=== PATIENT | male | born 1965 | race Caucasian/White ===

== ENCOUNTER 2017-06-19 14:13 | Inpatient (IN) | payer OTHER ==
[~2017-06-19] VITALS: Ht 188 cm; Wt 99.9 kg
[~2017-06-19 14:13] MED LIST: ALLE12TA2 PO; AMLO10TA2 PO; ASPI81CH CHEW; CIPR-9 PO; LEVO175T2 PO; PROT40TA PO; RAMI10CA PO
[2017-06-19] MEDS ORDERED: PROCHLORPERAZINE 25 MG SUPP RECTAL PRN (14:45)
[2017-06-19] MEDS ORDERED: HEPARIN-D5W 25,000 U/250 ML 250 ML IV PRN (14:45)
[2017-06-19] MEDS ORDERED: ACETAMINOPHEN 325 MG TAB PO PRN ×2 (14:45)
[2017-06-19] MEDS ORDERED: LACTULOSE SYRUP 20 GM/30 ML CUP PO PRN (14:45)
[2017-06-19] MEDS ORDERED: NALOXONE HCL 0.4 MG/ML AMP IV PUSH PRN (14:45)
[2017-06-19] MEDS ORDERED: ONDANSETRON HCL 4 MG/2 ML VIAL IVP PRN (14:45)
[2017-06-19] MEDS ORDERED: MORPHINE SULFATE 4 MG/ML INJ IV PUSH PRN ×2 (14:45)
[2017-06-19] MEDS ORDERED: BISACODYL 10 MG SUPP RECTAL PRN (14:45)
[2017-06-19] MEDS ORDERED: SODIUM CHLORIDE 0.9% FLUSH 10 ML FLUSH IV FLUSH PRN (14:45)
[2017-06-19] MEDS ORDERED: oxyCODONE/ACETAMINOPHEN 10 MG/325 MG TAB PO PRN (14:45)
[2017-06-19] MEDS ORDERED: SENNOSIDES 8.6 MG TAB PO PRN (14:45)
[2017-06-19] MEDS ORDERED: cloNIDine HCL 0.1 MG TAB PO PRN (14:45)
[2017-06-19] MEDS ORDERED: MAGNESIUM HYDROXIDE SUSP 30 ML CUP PO PRN (14:45)
[2017-06-19] MEDS ORDERED: LORazepam 1 MG TAB PO PRN (17:45)
[2017-06-19] MEDS ORDERED: LORazepam 2 MG TAB PO PRN (17:45)
--- NOTE | 2017-06-19 17:56 | HHI.HP ---
[facility] Service [facility] Primary Care Physician Non-Staff Admission Diagnosis Diagnoses: Chief Complaint: sob, and right leg pain Travel History International Travel<30 Days: No Contact w/Intl Traveler <30 Da: No Traveled to Known Affected Are: No History of Present Illness 51 y/o male with a history of HTN, Gerd and hypothyroid presented to the ED with complaints of sob and right calf pain. Patient states 2 weeks ago developed dyspnea and right calf pain. 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 He was seen by his PCP and diagnosed with bronchitis and given Ciprofloxacin without any relief. No chest x ray or US was completed outpatient. He denies any chest pain, fever or chills. He does have a cough which is followed by the shortness of breath, and worse with exertion. No sputum production. FOUND TO HAVE BILATERAL PULMONARY EMBOLI Review of Systems Constitutional: COMPLAINS OF: Fatigue, DENIES: Diaphoretic episodes, Fever, Weight gain, Weight loss, Chills, Dizziness, Change in appetite Endocrine: DENIES: Heat/cold intolerance, Polydipsia, Polyuria, Polyphagia Eyes: DENIES: Blurred vision, Diplopia, Eye inflammation, Eye pain, Vision loss , Photosensitivity Ears, nose, mouth, throat: DENIES: Tinnitus, Hearing loss, Vertigo, Nasal discharge, Oral lesions, Throat pain Respiratory: COMPLAINS OF: Cough, Shortness of breath, DENIES: Apneas, Snoring , Wheezing, Hemoptysis, Sputum production Cardiovascular: COMPLAINS OF: Lower Extremity Edema, DENIES: Chest pain, Palpitations, Syncope, Dyspnea on Exertion, PND Gastrointestinal: DENIES: Abdominal pain, Black stools, Bloody stools, Constipation Genitourinary: DENIES: Sexual dysfunction, Urinary frequency, Urinary incontinence Musculoskeletal: DENIES: Joint pain, Muscle aches, Stiffness, Joint Swelling Integumentary: DENIES: Abnormal pigmentation, Nail changes Hematologic/lymphatic: DENIES: Bruising, Lymphadenopathy Immunologic/allergic: DENIES: Eczema, Urticaria Neurologic: DENIES: Abnormal gait, Headache, Localized weakness, Paresthesias, Speech Problems, Tremor Psychiatric: DENIES: Anxiety, Confusion, Mood changes, Depression, Hallucinations, Agitation Except as stated in HPI: all other systems reviewed are Neg Past Family Social History Past Medical History HTN GERD Hypothyroid Past Surgical History Patient denies any surgical history Reported Medications Reported Meds & Active Scripts Active Reported Cipro (Ciprofloxacin HCl) 500 Mg Tab 500 Mg PO BID Ramipril 10 Mg Cap 10 Mg PO BID Amlodipine (Amlodipine Besylate) 10 Mg Tab 10 Mg PO DAILY Protonix (Pantoprazole Sodium) 40 Mg Tab 40 Mg PO DAILY Levothyroxine (Levothyroxine Sodium) 175 Mcg Tab 175 Mcg PO DAILY Aspirin 81 Mg Chew 81 Mg CHEW DAILY Corazon-D 12 Hour Allergy (Fexofenadine-Pseudoephedrine ER 12 HR) 60-120 Mg Sierra 1 Tab PO BID Allergies: Coded Allergies: Penicillins (Verified Allergy, Unknown, Swelling, 06/19/17) Active Ordered Medications Current Medications Medications (Trade) Dose Ordered Sig/Carmita Route Start Time Stop Time Status Last Admin Sodium Chloride 1,000 ml @ 100 mls/hr Q10H IV 06/19/17 17:00 (NS Flush) 2 ml UNSCH PRN IV FLUSH 06/19/17 14:45 (NS Flush) 2 ml BID IV FLUSH 06/19/17 21:00 (Tylenol) 650 mg Q4H PRN PO 06/19/17 14:45 (Zofran Inj) 4 mg Q6H PRN IVP 06/19/17 14:45 (Compazine Supp) 25 mg Q12H PRN RECTAL 06/19/17 14:45 (Tylenol) 650 mg Q6H PRN PO 06/19/17 14:45 (Percocet 5-325 Mg) 1 tab Q6H PRN PO 06/19/17 14:45 (Percocet 10-325 Mg) 1 tab Q6H PRN PO 06/19/17 14:45 (Morphine Inj) 2 mg Q3H PRN IV PUSH 06/19/17 14:45 (Morphine Inj) 4 mg Q3H PRN IV PUSH 06/19/17 14:45 (Narcan Inj) 0.4 mg UNSCH PRN IV PUSH 06/19/17 14:45 (Antionette-Colace) 1 tab BID PO 06/19/17 21:00 (Milk Of Magnesia Liq) 30 ml Q12H PRN PO 06/19/17 14:45 (Senokot) 17.2 mg Q12H PRN PO 06/19/17 14:45 (Dulcolax Supp) 10 mg DAILY PRN RECTAL 06/19/17 14:45 (Lactulose Liq) 30 ml DAILY PRN PO 06/19/17 14:45 Heparin Sodium/ Dextrose 250 ml @ 0 mls/hr TITRATE PRN IV 06/19/17 14:45 UNV (Norvasc) 10 mg DAILY PO 06/20/17 09:00 (Aspirin Chew) 81 mg DAILY CHEW 06/20/17 09:00 (Protonix) 40 mg DAILY@0600 PO 06/20/17 06:00 (Synthroid) 150 mcg DAILY@0600 PO 06/20/17 06:00 (Altace) 10 mg BID PO 06/19/17 21:00 (Catapres) 0.1 mg Q4H PRN PO 06/19/17 14:45 (Synthroid) 25 mcg DAILY@0600 PO 06/20/17 06:00 Family History Dad: Heart disease Mom: Smoker, lung cancer Social History Tobacco use: denies Alcohol use: 6-8 beers a day Illicit drug use: Denies Physical Exam Physical Exam GENERAL: This is a well-nourished, well-developed patient, in no apparent distress. SKIN: No rashes, ecchymoses or lesions. Cool and dry. HEAD: Atraumatic. Normocephalic. No temporal or scalp tenderness. EYES: Pupils equal round and reactive. Extraocular motions intact. No scleral icterus. No injection or drainage. ENT: Nose without bleeding, purulent drainage or septal hematoma. Throat without erythema, tonsillar hypertrophy or exudate. Uvula midline. Airway patent. NECK: Trachea midline. No JVD. CARDIOVASCULAR: Regular rate and rhythm without murmurs, gallops, or rubs. RESPIRATORY: Diminished bilateral upper lobes. No wheezes, rales, or rhonchi. GASTROINTESTINAL: Abdomen soft, non-tender, nondistended. BS x 4 MUSCULOSKELETAL: Extremities without clubbing, cyanosis, or edema. Right calf tenderness. NEUROLOGICAL: Awake and alert. Motor and sensory grossly within normal limits. Normal speech. Laboratory Item Value Date Time White Blood Count 8.7 TH/MM3 06/19/17 1432 Red Blood Count 4.82 MIL/MM3 06/19/17 1432 Hemoglobin 8.8 GM/DL L 06/19/17 1432 Hematocrit 30.8 % L 06/19/17 1432 Mean Corpuscular Volume 63.9 FL L 06/19/17 1432 Mean Corpuscular Hemoglobin 18.3 PG L 06/19/17 1432 Mean Corpuscular Hemoglobin Concent 28.6 % L 06/19/17 1432 Red Cell Distribution Width 20.7 % H 06/19/17 1432 Platelet Count 218 TH/MM3 06/19/17 1432 Mean Platelet Volume 9.9 FL 06/19/17 1432 Neutrophils (%) (Auto) 73.0 % H 06/19/17 1206 Lymphocytes (%) (Auto) 13.8 % 06/19/17 1206 Monocytes (%) (Auto) 9.7 % H 06/19/17 1206 Eosinophils (%) (Auto) 2.6 % 06/19/17 1206 Basophils (%) (Auto) 0.7 % 06/19/17 1206 Neutrophils # (Auto) 5.9 TH/MM3 06/19/17 1206 Lymphocytes # (Auto) 1.1 TH/MM3 06/19/17 1206 Monocytes # (Auto) 0.8 TH/MM3 06/19/17 1206 Basophils # (Auto) 0.1 TH/MM3 06/19/17 1206 Eosinophils # (Auto) 0.2 TH/MM3 06/19/17 1206 Differential Comment AUTO DIFF CONFIRMED 06/19/17 1206 CBC Comment AUTO DIFF 06/19/17 1206 Platelet Estimate NORMAL 06/19/17 1206 Platelet Morphology Comment NORMAL 06/19/17 1206 Polychromasia 2.0 % H 06/19/17 1206 Ovalocytes 1+ H 06/19/17 1206 Item Value Date Time Blood Gas Patient Temperature 98.6 06/19/17 1225 Blood Gas HCO3 21 mmol/L L 06/19/17 1225 Bedside Blood Gas Base Excess (LAB) -3.0 mmol/L L 06/19/17 1225 Blood Gas Oxygen Saturation 95 % 06/19/17 1225 Arterial Blood pH 7.45 H 06/19/17 1225 Arterial Blood Partial Pressure CO2 30 mmHG L 06/19/17 1225 Arterial Blood Partial Pressure O2 70 mmHG 06/19/17 1225 Arterial Blood Oxygen Content 22.0 Vol % H 06/19/17 1225 Oxygen Delivery Device ROOM AIR 06/19/17 1225 Blood Gas Inspired Oxygen 21 % 06/19/17 1225 Item Value Date Time Prothrombin Time 10.6 SEC 06/19/17 1206 Prothromb Time International Ratio 1.0 RATIO 06/19/17 1206 Activated Partial Thromboplast Time 27.6 SEC 06/19/17 1432 Fibrinogen 342 mg/dL 06/19/17 1432 D-Dimer Quantitative (PE/DVT) GREATER THAN 4.40 MG/L FEU H 06/19/17 1432 Item Value Date Time Sodium Level 139 MEQ/L 06/19/17 1206 Potassium Level 4.2 MEQ/L 06/19/17 1206 Chloride Level 108 MEQ/L H 06/19/17 1206 Carbon Dioxide Level 21.0 MEQ/L 06/19/17 1206 Anion Gap 10 MEQ/L 06/19/17 1206 Blood Urea Nitrogen 16 MG/DL 06/19/17 1206 Creatinine 1.30 MG/DL 06/19/17 1206 Estimat Glomerular Filtration Rate 58 ML/MIN L 06/19/17 1206 Random Glucose 106 MG/DL 06/19/17 1206 Calcium Level 8.7 MG/DL 06/19/17 1206 Total Creatine Kinase 123 U/L 06/19/17 1206 Creatine Kinase MB LESS THAN 1.0 NG/ML 06/19/17 1206 Troponin I LESS THAN 0.02 NG/ML L 06/19/17 1206 Imaging NINFA,HARSH SIMS JR Signed EXAM DATE/TIME: 06/19/2017 12:57 [facility] COMPARISON: No previous studies available for comparison. INDICATIONS : Short of breath. IV CONTRAST: 140 cc Omnipaque 350 (iohexol) IV RADIATION DOSE: 16.23 CTDIvol (mGy) MEDICAL HISTORY : Hypertension. SURGICAL HISTORY : None. ENCOUNTER: Initial ACUITY: 1 day PAIN SCALE: 5/10 LOCATION: chest TECHNIQUE: Volumetric scanning of the chest was performed using a pulmonary embolism protocol MIP images were reconstructed. Using automated exposure control and adjustment of the mA and/or kV according to patient size, radiation dose was kept as low as reasonably achievable to obtain optimal diagnostic quality images. DICOM format image data is available electronically for review and comparison. Follow-up recommendations for detected pulmonary nodules are based at a minimum on nodule size and patient risk factors according to Fleischner Society Guidelines. FINDINGS: PULMONARY ARTERIES: The examination is positive for pulmonary emboli involving second order branches bilaterally. LUNGS: There is no consolidation or pneumothorax . No concerning pulmonary nodule is visualized. PLEURAE: There is no pleural thickening or pleural effusion. MEDIASTINUM: There is good visualization of the great vessels of the middle mediastinum. No evidence of mediastinal or hilar adenopathy/mass. MUSCULOSKELETAL: Within normal limits for patient age. MISCELLANEOUS: The visualized upper abdominal organs demonstrate no acute abnormality. CONCLUSION: 1. The examination is positive for pulmonary embolus. Erick Sosa MD on June 19, 2017 at 13:24 Board Certified Radiologist. This report was verified electronically. HARSH OCASIO JR Signed EXAM DATE/TIME: 06/19/2017 12:55 [facility] COMPARISON: No previous studies available for comparison. INDICATIONS : Coughing, short of breath. MEDICAL HISTORY : Hypertension. SURGICAL HISTORY : None. ENCOUNTER: Initial ACUITY: 1 day PAIN SCORE: 4/10 LOCATION: Bilateral chest FINDINGS: PA and lateral views of the chest demonstrate the lungs to be symmetrically aerated without evidence of mass, infiltrate or effusion. The cardiomediastinal contours are unremarkable. Osseous structures demonstrate an old, healed fracture of the seventh lateral rib on the right. The osseous structures are otherwise intact. CONCLUSION: 1. No acute cardiopulmonary findings. Erick Sosa MD on June 19, 2017 at 13:29 Board Certified Radiologist. This report was verified electronically. Caprini VTE Risk Assessment Caprini VTE Risk Assessment: Mod/High Risk (score >= 2) Caprini Risk Assessment Model Point Value = 1 Point Value = 2 Point Value = 3 Point Value = 5 Age 41-60 Minor surgery BMI > 25 kg/m2 Swollen legs Varicose veins or History of unexplained or recurrent spontaneous Oral contraceptives or hormone replacement Sepsis (< 1 month) Serious lung disease, including pneumonia (< 1 month) Abnormal pulmonary function Acute myocardial infarction Congestive heart failure (< 1 month) History of inflammatory bowel disease Medical patient at bed rest Age 61-74 Arthroscopic surgery Major open surgery (> 45 min) Laparoscopic surgery (> 45 min) Malignancy Confined to bed (> 72 hours) Immobilizing plaster cast Central venous access Age >= 75 History of VTE Family history of VTE Factor V Leiden Prothrombin [id number] Lupus anticoagulant Anticardiolipin antibodies Elevated serum homocysteine Heparin-induced thrombocytopenia Other congenital or acquired thrombophilia Stroke (< 1 month) Elective arthroplasty Hip, pelvis, or leg fracture Acute spinal cord injury (< 1 month) Prophylaxis Regimen Total Risk Factor Score Risk Level Prophylaxis Regimen 0-1 Low Early ambulation 2 Moderate Order ONE of the following: *Sequential Compression Device (SCD) *Heparin 5000 units SQ BID 3-4 Higher Order ONE of the following medications: *Heparin 5000 units SQ TID *Enoxaparin/Lovenox 40 mg SQ daily (WT < 150 kg, CrCl > 30 mL/min) *Enoxaparin/Lovenox 30 mg SQ daily (WT < 150 kg, CrCl > 10-29 mL/min) *Enoxaparin/Lovenox 30 mg SQ BID (WT < 150 kg, CrCl > 30 mL/min) AND/OR *Sequential Compression Device (SCD) 5 or more Highest Order ONE of the following medications: *Heparin 5000 units SQ TID (Preferred with Epidurals) *Enoxaparin/Lovenox 40 mg SQ daily (WT < 150 kg, CrCl > 30 mL/min) *Enoxaparin/Lovenox 30 mg SQ daily (WT < 150 kg, CrCl > 10-29 mL/min) *Enoxaparin/Lovenox 30 mg SQ BID (WT < 150 kg, CrCl > 30 mL/min) AND *Sequential Compression Device (SCD) Assessment and Plan Problem List: (1) Pulmonary embolism ICD Code: I26.99 - Other pulmonary embolism without acute cor pulmonale (2) Hypothyroid ICD Code: E03.9 - Hypothyroidism, unspecified (3) HTN (hypertension) ICD Code: I10 - Essential (primary) hypertension Assessment and Plan 51 y/o male with a history of HTN, Gerd and hypothyroid presented to the ED with complaints of sob and right calf pain. Pulmonary embolism CTA reviewed and showed positive PE -Bilateral Doppler ultrasound to rule out DVT -Hypercoag labs ordered, will consult hematology if needed -Heparin Drip ordered Hypertension, chronic -Resume home amlodipine and ramipril -Monitor Vitals -Clonidine PRN Hypothyroid, chronic -Resume home medication levothyroxine -TSH pending Alcohol abuse, 6-8 beers a day -CIWA protocol ordered -Withdraw/seizure precautions -Encouraged to quit DVT prophylaxis: Heparin GI prophylaxis: Protonix The exam, history, and the medical decision-making described in the above note were completed with the assistance of the mid-level provider. I reviewed and agree with the findings presented. I attest that I had a [id number] encounter with the patient on the same day, and personally performed and documented my assessment and findings in the medical record. Code Status Full Discussed Condition With Patient and RN Physician Certification 2 Midnight Certification Type: Admission for Inpatient Services Order for Inpatient Services The services are ordered in accordance with Medicare regulations or non- Medicare payer requirements, as applicable. In the case of services not specified as inpatient-only, they are appropriately provided as inpatient services in accordance with the 2-midnight benchmark. Estimated LOS (days): 3 3 days is the estimated time the patient will need to remain in the hospital, assuming treatment plan goals are met and no additional complications. Post-Hospital Plan: Home Naomy Mosqueda Jun 19, 2017 17:56 Wild Ibanez DO Jun 19, 2017 18:25
--- NOTE | 2017-06-19 18:23 | RADRPT ---
EXAM DATE/TIME: 06/19/2017 17:34 [facility] COMPARISON: No previous studies available for comparison. INDICATIONS : Bilateral leg pain. MEDICAL HISTORY : Hypertension. Gastroesophageal reflux disease. ETOH abuse. Plaque psoriasis. Thyroid disease. SURGICAL HISTORY : None. ENCOUNTER: Initial ACUITY: 2 day PAIN SCORE: 4/10 LOCATION: Bilateral leg. TECHNIQUE: Venous ultrasound of the left and right leg was performed from the inguinal ligament to the proximal calf. Real-time, color Doppler and spectral tracing, compression and augmentation techniques were us ed. FINDINGS: RIGHT LEG: The common femoral, femoral, greater saphenous and popliteal veins are patent with normal grayscale a nd color Doppler appearance. There is occlusive thrombus in the right peroneal vein and posterior tib ial veins. The right iliac vein is patent. LEFT LEG: There is normal compressibility of the deep venous system from the inguinal region to the proximal ca lf. No echogenic clot is seen in the lumen of the common femoral, femoral, popliteal, and posterior tibial veins. There is a normal response of the venous system to proximal and distal augmentation an d respiration. CONCLUSION: 1. Occlusive thrombus in the right peroneal and posterior tibial vein. 2. No evidence for DVT on the left. Hernesto Starr MD on June 19, 2017 at 18:20 Board Certified Radiologist. This report was verified electronically.
[2017-06-19 18:53] VITALS: PULSE 77; RESP 20; O2SAT 95
[2017-06-19] MEDS: SODIUM CHLORIDE 0.9% FLUSH 10 ML FLUSH IV FLUSH SCH (21:00)
[2017-06-19 21:32] LABS: HEMATOCRIT 30.2 % (39.0-51.0); MEAN CELL VOLUME 60.2 FL (80.0-100.0); MEAN CORPUSCULAR HEMOGLOBIN 18.1 PG (27.0-34.0); MEAN CORPUSCULAR HGB CONC 30.1 % (32.0-36.0); PLATELET COUNT 199 TH/MM3 (150-450); RED BLOOD COUNT 5.02 MIL/MM3 (4.50-5.90); RED CELL DISTRIBUTION WIDTH 20.1 % (11.6-17.2); REVIEW FLAG FINAL; WHITE BLOOD COUNT 9.1 TH/MM3 (4.0-11.0)
[2017-06-19 21:49] VITALS: BP 134/80; PULSE 84; TEMP 99.3; O2SAT 95
[2017-06-19] MEDS: RAMIPRIL 5 MG CAP PO SCH (21:53)
[2017-06-19] MEDS: DOCUSATE SODIUM 50 MG/SENNA 8.6 MG TAB PO SCH (21:53)
[2017-06-19] MEDS: SODIUM CHLOR 0.9% 1000 ML INJ 1,000 ML IV SCH (22:03)
[2017-06-19 22:06] LABS: CREATINE KINASE 120 U/L (39-308)
[2017-06-19 22:21] LABS: APTT (PATIENT) 81.4 SEC (24.3-30.1)
[2017-06-20] VITALS (7 sets, daily range): BP systolic 115–139; BP diastolic 65–84; PULSE 72–93; RESP 18–20; TEMP 98.2–98.6; O2SAT 94–97
[2017-06-20] MEDS: BENZONATATE 100 MG CAP PO PRN ×2 (02:43→23:27)
[2017-06-20] MEDS: oxyCODONE/ACETAMINOPHEN 5 MG/325 MG TAB PO PRN ×3 (02:44→23:27)
[2017-06-20 04:22] LABS: APTT (PATIENT) 64.5 SEC (24.3-30.1)
[2017-06-20] MEDS: PANTOPRAZOLE SOD 40 MG DELAYED RELEASE TAB PO SCH (05:04)
[2017-06-20] MEDS: HEPARIN 25,000 UNITS-D5W 250 ML - PREMIX IV SCH ×2 (05:06→21:44)
[2017-06-20] MEDS ORDERED: LEVOTHYROXINE SODIUM 150 MCG TAB PO SCH (06:00)
[2017-06-20] MEDS ORDERED: LEVOTHYROXINE SODIUM 25 MCG TAB PO SCH (06:00)
[2017-06-20] MEDS: SODIUM CHLORIDE 0.9% FLUSH 10 ML FLUSH IV FLUSH SCH ×2 (09:00→21:00)
[2017-06-20 09:57] LABS: AUTOMATED NEUTROPHIL # 4.8 TH/MM3 (1.8-7.7); BASOPHIL # 0.1 TH/MM3 (0-0.2); BASOPHIL % 1.1 % (0.0-2.0); EOSINOPHIL # 0.3 TH/MM3 (0-0.4); EOSINOPHIL % 4.1 % (0.0-4.0); HEMATOCRIT 28.1 % (39.0-51.0); HEMO FLAGS DIFF FINAL; LYMPH % 20.7 % (9.0-44.0); LYMPHOCYTE # 1.6 TH/MM3 (1.0-4.8); MEAN CELL VOLUME 60.6 FL (80.0-100.0); MONO % 11.7 % (0.0-8.0); NEUT % 62.4 % (16.0-70.0); PLATELET COUNT 182 TH/MM3 (150-450); RED BLOOD COUNT 4.65 MIL/MM3 (4.50-5.90); RED CELL DISTRIBUTION WIDTH 20.5 % (11.6-17.2); WHITE BLOOD COUNT 7.7 TH/MM3 (4.0-11.0)
[2017-06-20 10:04] LABS: APTT (PATIENT) 53.9 SEC (24.3-30.1)
[2017-06-20 10:20] LABS: MEAN CORPUSCULAR HGB CONC 29.6 % (32.0-36.0)
[2017-06-20 10:24] LABS: ALT (GPT) 30 U/L (12-78); ANION GAP 8 MEQ/L (5-15); AST (GOT) 23 U/L (15-37); BICARBONATE 24.5 MEQ/L (21.0-32.0); BLOOD UREA NITROGEN 15 MG/DL (7-18); CHLORIDE 107 MEQ/L (98-107); GLOMERULAR FILTRATION RATE 69 ML/MIN (>89); MAGNESIUM 2.8 MG/DL (1.5-2.5); POTASSIUM 3.9 MEQ/L (3.5-5.1); SODIUM (NA) 139 MEQ/L (136-145)
[2017-06-20 10:32] LABS: ALKALINE PHOSPHATASE 76 U/L (45-117); CREATINE KINASE 108 U/L (39-308); TOTAL BILIRUBIN ADULT 0.3 MG/DL (0.2-1.0)
[2017-06-20 10:43] LABS: HEMOGLOBIN A1a 1.6 %; HEMOGLOBIN A1b 1.8 %; HEMOGLOBIN Ao 83.5 %; HEMOGLOBIN LA1C 2.4 %; HEMOGLOBIN P3 3.9 %
[2017-06-20] MEDS: MULTIVITAMINS/MINERALS THERAPEUTIC TAB PO SCH (11:49)
[2017-06-20] MEDS: THIAMINE HCL 100 MG TAB PO SCH (11:50)
[2017-06-20] MEDS: DOCUSATE SODIUM 50 MG/SENNA 8.6 MG TAB PO SCH ×2 (11:50→21:40)
[2017-06-20] MEDS: RAMIPRIL 5 MG CAP PO SCH ×2 (11:50→21:40)
[2017-06-20] MEDS: ASPIRIN 81 MG CHEW TAB CHEW SCH (11:50)
[2017-06-20] MEDS: FOLIC ACID 1 MG TAB PO SCH (11:50)
[2017-06-20] MEDS: SODIUM CHLOR 0.9% 1000 ML INJ 1,000 ML IV SCH ×3 (11:51→23:00)
--- NOTE | 2017-06-20 12:40 | HHI.PR ---
Subjective Remarks 51 y/o male with a history of HTN, Gerd and hypothyroid presented to the ED with complaints of sob and right calf pain. Patient states 2 weeks ago developed dyspnea and right calf pain. 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 He was seen by his PCP and diagnosed with bronchitis and given Ciprofloxacin without any relief. No chest x ray or US was completed outpatient. He denies any chest pain, fever or chills. He does have a cough which is followed by the shortness of breath, and worse with exertion. No sputum production. FOUND TO HAVE BILATERAL PULMONARY EMBOLI 06-20 patient found to have DVTs in the right lower extremity Has pulmonary embolism bilaterally Consult hematology Hopefully can be placed on a novel anticoagulant Have discussed with the patient and RN Has some pain in the right lower extremity and some back pain Continue heparin drip at this time His TSH was elevated will increase his Synthroid to 200 MCG's daily Objective Vitals Vital Signs Date Time Temp Pulse Resp B/P (MAP) Pulse Ox O2 Delivery O2 Flow Rate FiO2 06/20/17 12:14 98.5 73 19 122/80 (94) 96 06/20/17 08:53 98.2 77 18 115/79 (91) 94 06/20/17 04:00 98.6 82 20 122/84 (97) 97 06/20/17 00:00 98.6 93 20 139/78 (98) 97 06/19/17 21:49 99.3 84 134/80 (98) 95 06/19/17 18:53 77 20 95 I/O 06/19/17 06/19/17 06/19/17 06/20/17 06/20/17 06/20/17 07:00 15:00 23:00 07:00 15:00 23:00 # Voids 1 2 Result Diagram: 06/20/17 0846 06/20/17 0846 Other Results Laboratory Tests Test 06/19/17 21:18 06/20/17 04:04 06/20/17 08:46 White Blood Count 9.1 TH/MM3 7.7 TH/MM3 Red Blood Count 5.02 MIL/MM3 4.65 MIL/MM3 Hemoglobin 9.1 GM/DL 8.3 GM/DL Hematocrit 30.2 % 28.1 % Mean Corpuscular Volume 60.2 FL 60.6 FL Mean Corpuscular Hemoglobin 18.1 PG 18.0 PG Mean Corpuscular Hemoglobin Concent 30.1 % 29.6 % Red Cell Distribution Width 20.1 % 20.5 % Platelet Count 199 TH/MM3 182 TH/MM3 Mean Platelet Volume 8.5 FL 8.6 FL Prothrombin Time 11.0 SEC 11.0 SEC Prothromb Time International Ratio 1.0 RATIO 1.0 RATIO Activated Partial Thromboplast Time 81.4 SEC 64.5 SEC 53.9 SEC Total Creatine Kinase 120 U/L 108 U/L Troponin I LESS THAN 0.02 NG/ML LESS THAN 0.02 NG/ML Neutrophils (%) (Auto) 62.4 % Lymphocytes (%) (Auto) 20.7 % Monocytes (%) (Auto) 11.7 % Eosinophils (%) (Auto) 4.1 % Basophils (%) (Auto) 1.1 % Neutrophils # (Auto) 4.8 TH/MM3 Lymphocytes # (Auto) 1.6 TH/MM3 Monocytes # (Auto) 0.9 TH/MM3 Eosinophils # (Auto) 0.3 TH/MM3 Basophils # (Auto) 0.1 TH/MM3 CBC Comment DIFF FINAL Differential Comment Blood Urea Nitrogen 15 MG/DL Creatinine 1.11 MG/DL Random Glucose 94 MG/DL Total Protein 7.0 GM/DL Albumin 3.5 GM/DL Calcium Level 8.4 MG/DL Phosphorus Level 3.5 MG/DL Magnesium Level 2.8 MG/DL Alkaline Phosphatase 76 U/L Aspartate Amino Transf (AST/SGOT) 23 U/L Alanine Aminotransferase (ALT/SGPT) 30 U/L Total Bilirubin 0.3 MG/DL Sodium Level 139 MEQ/L Potassium Level 3.9 MEQ/L Chloride Level 107 MEQ/L Carbon Dioxide Level 24.5 MEQ/L Anion Gap 8 MEQ/L Estimat Glomerular Filtration Rate 69 ML/MIN Hemoglobin A1c 6.1 % Free Thyroxine 1.30 NG/DL Thyroid Stimulating Hormone 3rd Gen 12.200 uIU/ML Imaging Last Impressions Lower Extremity Ultrasound 06/19/17 0000 Signed Impressions: Service Date/Time: Monday, June 19, 2017 17:34 - CONCLUSION: 1. Occlusive thrombus in the right peroneal and posterior tibial vein. 2. No evidence for DVT on the left. Hernesto Starr MD Chest, PA & LAT Signed EXAM DATE/TIME: 06/19/2017 12:55 [facility] COMPARISON: No previous studies available for comparison. INDICATIONS : Coughing, short of breath. MEDICAL HISTORY : Hypertension. SURGICAL HISTORY : None. ENCOUNTER: Initial ACUITY: 1 day PAIN SCORE: 4/10 LOCATION: Bilateral chest FINDINGS: PA and lateral views of the chest demonstrate the lungs to be symmetrically aerated without evidence of mass, infiltrate or effusion. The cardiomediastinal contours are unremarkable. Osseous structures demonstrate an old, healed fracture of the seventh lateral rib on the right. The osseous structures are otherwise intact. CONCLUSION: 1. No acute cardiopulmonary findings. Erick Sosa MD on June 19, 2017 at 13:29 Board Certified Radiologist. This report was verified electronically. CT Pulmonary Angiogram Signed EXAM DATE/TIME: 06/19/2017 12:57 [facility] COMPARISON: No previous studies available for comparison. INDICATIONS : Short of breath. IV CONTRAST: 140 cc Omnipaque 350 (iohexol) IV RADIATION DOSE: 16.23 CTDIvol (mGy) MEDICAL HISTORY : Hypertension. SURGICAL HISTORY : None. ENCOUNTER: Initial ACUITY: 1 day PAIN SCALE: 5/10 LOCATION: chest TECHNIQUE: Volumetric scanning of the chest was performed using a pulmonary embolism protocol MIP images were reconstructed. Using automated exposure control and adjustment of the mA and/or kV according to patient size, radiation dose was kept as low as reasonably achievable to obtain optimal diagnostic quality images. DICOM format image data is available electronically for review and comparison. Follow-up recommendations for detected pulmonary nodules are based at a minimum on nodule size and patient risk factors according to Fleischner Society Guidelines. FINDINGS: PULMONARY ARTERIES: The examination is positive for pulmonary emboli involving second order branches bilaterally. LUNGS: There is no consolidation or pneumothorax . No concerning pulmonary nodule is visualized. PLEURAE: There is no pleural thickening or pleural effusion. MEDIASTINUM: There is good visualization of the great vessels of the middle mediastinum. No evidence of mediastinal or hilar adenopathy/mass. MUSCULOSKELETAL: Within normal limits for patient age. MISCELLANEOUS: The visualized upper abdominal organs demonstrate no acute abnormality. CONCLUSION: 1. The examination is positive for pulmonary embolus. Erick Sosa MD on June 19, 2017 at 13:24 Board Certified Radiologist. This report was verified electronically. Objective Remarks GENERAL: This is a well-nourished, well-developed patient, in no apparent distress. SKIN: No rashes, ecchymoses or lesions. Cool and dry. HEAD: Atraumatic. Normocephalic. No temporal or scalp tenderness. EYES: Pupils equal round and reactive. Extraocular motions intact. No scleral icterus. No injection or drainage. ENT: Nose without bleeding, purulent drainage or septal hematoma. Throat without erythema, tonsillar hypertrophy or exudate. Uvula midline. Airway patent. Tongue is midline NECK: Trachea midline. No JVD. Supple CARDIOVASCULAR: Regular rate and rhythm without murmurs, gallops, or rubs. RESPIRATORY: Diminished bilateral upper lobes. No wheezes, rales, or rhonchi. GASTROINTESTINAL: Abdomen soft, non-tender, nondistended. BS x 4 MUSCULOSKELETAL: Extremities without clubbing, cyanosis, or edema. Right calf tenderness. NEUROLOGICAL: Awake and alert. Motor and sensory grossly within normal limits. Normal speech. Insight and judgment is good; mood and behaviors are appropriate Medications and IVs Current Medications Sodium Chloride 1,000 ml @ 100 mls/hr Q10H IV Last administered on 06/20/17t 11:54; Start 06/19/17 at 17:00 Sodium Chloride (NS Flush) 2 ml UNSCH PRN IV FLUSH FLUSH AFTER USING IV ACCESS ; Start 06/19/17 at 14:45 Sodium Chloride (NS Flush) 2 ml BID IV FLUSH Last administered on 06/19/17t 21: 00; Start 06/19/17 at 21:00 Acetaminophen (Tylenol) 650 mg Q4H PRN PO TEMP > 100.4; Start 06/19/17 at 14:45 Ondansetron HCl (Zofran Inj) 4 mg Q6H PRN IVP NAUSEA OR VOMITING; Start at 14:45 Prochlorperazine (Compazine Supp) 25 mg Q12H PRN RECTAL SEE LABEL COMMENTS; Start 06/19/17 at 14:45 Acetaminophen (Tylenol) 650 mg Q6H PRN PO PAIN SCALE 1 TO 2; Start 06/19/17 at 14:45 Oxycodone/ Acetaminophen (Percocet 5-325 Mg) 1 tab Q6H PRN PO PAIN SCALE 3 TO 5 Last administered on 06/20/17 02:44; Start 06/19/17 at 14:45 Oxycodone/ Acetaminophen (Percocet 10-325 Mg) 1 tab Q6H PRN PO PAIN SCALE 6 TO 10; Start 06/19/17 at 14:45 Morphine Sulfate (Morphine Inj) 2 mg Q3H PRN IV PUSH Pain 3-5; if unable to take PO; Start 06/19/17 at 14:45 Morphine Sulfate (Morphine Inj) 4 mg Q3H PRN IV PUSH Pain 6-10;if unable to take PO Last administered on 06/20/17 05:16; Start 06/19/17 at 14:45 Naloxone HCl (Narcan Inj) 0.4 mg UNSCH PRN IV PUSH SEE LABEL COMMENTS; Start 06/19/17 at 14:45 Senna/Docusate Sodium (Antionette-Colace) 1 tab BID PO Last administered on 11:50; Start 06/19/17 at 21:00 Magnesium Hydroxide (Milk Of Magnesia Liq) 30 ml Q12H PRN PO MILD - MODERATE CONSTIPATION; Start 06/19/17 at 14:45 Sennosides (Senokot) 17.2 mg Q12H PRN PO MODERATE - SEVERE CONSTIPATION; Start 06/19/17 at 14:45 Bisacodyl (Dulcolax Supp) 10 mg DAILY PRN RECTAL SEVERE CONSITIPATION; Start 06/19/17 at 14:45 Lactulose (Lactulose Liq) 30 ml DAILY PRN PO SEVERE CONSITIPATION; Start at 14:45 Heparin Sodium/ Dextrose 250 ml @ 0 mls/hr TITRATE PRN IV Coagulation management; Start 06/19/17 at 14:45; Status UNV Amlodipine Besylate (Norvasc) 10 mg DAILY PO Last administered on 06/20/17 11: 50; Start 06/20/17 at 09:00 Aspirin (Aspirin Chew) 81 mg DAILY CHEW Last administered on 06/20/17 11:50; Start 06/20/17 at 09:00 Pantoprazole Sodium (Protonix) 40 mg DAILY@0600 PO Last administered on 05:04; Start 06/20/17 at 06:00 Levothyroxine Sodium (Synthroid) 150 mcg DAILY@0600 PO Last administered on 05:03; Start 06/20/17 at 06:00; Stop 06/20/17 at 12:10; Status DC Ramipril (Altace) 10 mg BID PO Last administered on 06/20/17 11:50; Start 06/19/17 at 21:00 Clonidine (Catapres) 0.1 mg Q4H PRN PO SBP>160, DBP>90; Start 06/19/17 at 14:45 Levothyroxine Sodium (Synthroid) 25 mcg DAILY@0600 PO Last administered on 06/20 05:03; Start 06/20/17 at 06:00; Stop 06/20/17 at 12:10; Status DC Folic Acid (Folate) 1 mg DAILY PO Last administered on 06/20/17 11:50; Start 06/20/17 at 09:00; Stop 06/25/17 at 08:59 Thiamine HCl (Vitamin B1) 100 mg DAILY PO Last administered on 06/20/17 11:50 ; Start 06/20/17 at 09:00 Multivitamins/ Minerals Therapeutic (Theragran M Tab) 1 tab DAILY PO Last administered on 06/20/17 11:49; Start 06/20/17 at 09:00; Stop 06/25/17 at 08: 59 Lorazepam (Ativan) 1 mg Q4H PRN PO CIWA 8 - 10; Start 06/19/17 at 17:45 Lorazepam (Ativan) 2 mg Q2H PRN PO CIWA 11-14; Start 06/19/17 at 17:45 Heparin Sodium/ Dextrose 250 ml @ 17 mls/hr TITRATE IV Last administered on 05:06; Start 06/19/17 at 18:00 Benzonatate (Tessalon) 100 mg TID PRN PO cough interfering with rest Last administered on 06/20/17 02:43; Start 06/19/17 at 23:15 Levothyroxine Sodium (Synthroid) 200 mcg DAILY@0600 PO ; Start 06/21/17 at 06: 00; Status UNV Urinary Catheter: No Vascular Central Line Catheter: No A/P Problem List: (1) Pulmonary embolism ICD Code: I26.99 - Other pulmonary embolism without acute cor pulmonale (2) Hypothyroid ICD Code: E03.9 - Hypothyroidism, unspecified (3) HTN (hypertension) ICD Code: I10 - Essential (primary) hypertension Assessment and Plan 51 y/o male with a history of HTN, Gerd and hypothyroid presented to the ED with complaints of sob and right calf pain. Pulmonary embolism CTA reviewed and showed positive PE -Bilateral Doppler ultrasound to rule out DVT -Hypercoag labs ordered, will consult hematology if needed -Heparin Drip ordered Ultrasound shows right lower extremity DVTs Consult hematology Hypertension, chronic -Resume home amlodipine and ramipril -Monitor Vitals -Clonidine PRN Hypothyroid, chronic -Resume home medication levothyroxine -TSH pending Increase Synthroid to 200 MCG's by mouth daily due to the elevated TSH Alcohol abuse, 6-8 beers a day -CIWA protocol ordered -Withdraw/seizure precautions -Encouraged to quit DVT prophylaxis: Heparin GI prophylaxis: Protonix Discharge Planning Await hematology input for hopefully novel anti-coagulant Wild Ibanez DO Jun 20, 2017 12:40
--- NOTE | 2017-06-20 12:40 | EKG ---
Date Performed: 06/19/2017 Time Performed: 20:29:01 PTAGE: 51 years EKG: Sinus rhythm NORMAL ECG Compared to prior tracing no significant change PREVIOUS TRACING 06/19/2017 12.15 DOCTOR: Inder Adan Interpretating Date/Time 06/20/2017 12:34:54
[2017-06-20 13:00] LABS: APTT (PATIENT) 59.9 SEC (24.3-30.1)
[2017-06-20 20:28] LABS: TRANSFERRIN IRON PROFILE 314 MG/DL (200-360)
[2017-06-20 20:54] LABS: FERRITIN 7 NG/ML (26-388); LDH SERUM 231 U/L (87-241)
[2017-06-20 21:36] LABS: APTT (PATIENT) 48.2 SEC (24.3-30.1)
--- NOTE | 2017-06-20 22:31 | MB ---
cc: MATT CLOE MD DATE OF CONSULTATION 06/20/2017 CHIEF COMPLAINT Venous thromboembolism. HISTORY OF THE PRESENT ILLNESS Mr. Babb is a 51-year-old gentleman with a history of hypertension and hypothyroidism who presented to the emergency room in [place] with a two to three week history of right calf pain and shortness of breath. 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 He reports that he did not have relief of his symptoms with the antibiotic and he sought help and evaluation in the emergency room. He was found to have a pulmonary embolism. He was started on heparin. An ultrasound of the lower extremity shows occlusive thrombus in the right peroneal and posterior tibial vein with no evidence for DVT on the left. LABORATORY DATA Laboratory studies from June 19 showed a white blood cell count of 9.1, hemoglobin of 9.1. A platelet count 199. From June 20 showed a white blood cell count is 7.7, hemoglobin of 8.3 and a platelet count of 182. He has a normal differential. Chemistry studies show a creatinine of 1.1. A calcium level of 8.4. A bili of 0.3, AST of 23 and ALT of 30. Alkaline phosphatase of 70. Total protein of 7 and albumin of 3.5. TSH elevated at 12 and free T4 1.3. ROS: Negative except for those items mentioned in HPI PAST MEDICAL HISTORY 1. Hypertension. 2. Hypothyroidism. PAST SURGICAL HISTORY None. FAMILY HISTORY Brother with a history of blood clots, peripheral vascular disease, coronary artery disease. SOCIAL HISTORY The patient lives in [place]. He has a good support system with his . 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 He denies tobacco and illegal drug use. He drinks about 6-8 beers a night. ALLERGIES PENICILLIN. UNKNOWN CHILDHOOD ALLERGY. MEDICATIONS Home medications include: 1. Prevacid. 2. Ramipril. 3. Synthroid. 4. Amlodipine. 5. Baby aspirin. PHYSICAL EXAMINATION CONSTITUTIONAL: Well-developed, well-nourished man in no distress. EYES: No scleral icterus. Ear, nose, and throat, oropharynx clear. NECK: Supple with no adenopathy. CARDIOVASCULAR: Regular rate and rhythm with no murmurs. RESPIRATORY: Clear to auscultation bilaterally. GASTROINTESTINAL: Soft, nontender, nondistended with bowel sounds present. MUSCULOSKELETAL: Pain upon palpation of left calf. SKIN: No bruising or rashes. NEUROLOGIC: Alert and oriented and nonfocal. PSYCHIATRIC: Appropriate mood and affect. HEMATOLOGIC: No bruising. LYMPHATICS: No lymphadenopathy. ASSESSMENT/PLAN 1. Pulmonary embolism: unprovoked. Currently on heparin. Discussed options for outpatient anticoagulation including warfarin and apixaban and Xarelto. He reports that he and his will discuss and then will consider their options. At this time given continued pain and shortness would recommend one additional day of therapeutic anticoagulation with heparin given anti inflammatory properties. Will also order echo to evaluate cardiac function. Extensive discussion with patient and who are very anxious regarding this diagnosis. 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 Discussed mechanism of action of drug. Discussed that blood thinners stop clot from propogating and the body resorbs the clot. Discussed that IVC filter would be indicated in a patient with contraindications to anticoagulation, and are not used in patients who are able to be fully anticoagulated. Discussed that he will likely need indefinite anticoagulation. 2. Anemia, microcytic. We will order anemia workup including iron profile, ferritin, B12, folate and peripheral blood smear. He reports that his last colononscopy was approximately 3 years ago with removal of polyps. 3. Alcohol abuse: counseled on cessation especially in the setting of VTE and need for anticoagulation. MD JOSEPH Liang/KRISS /7:09 PM /10:14 PM STAR
[2017-06-21] VITALS (9 sets, daily range): BP systolic 113–133; BP diastolic 58–72; PULSE 65–98; RESP 16–18; TEMP 97.8–99; O2SAT 91–100
[2017-06-21] MEDS ORDERED: diphenhydrAMINE HCL 25 MG CAP PO PRN (03:45)
[2017-06-21] MEDS: oxyCODONE/ACETAMINOPHEN 5 MG/325 MG TAB PO PRN (06:38)
[2017-06-21] MEDS: LEVOTHYROXINE SODIUM 200 MCG TAB PO SCH (06:38)
[2017-06-21] MEDS: PANTOPRAZOLE SOD 40 MG DELAYED RELEASE TAB PO SCH (06:38)
[2017-06-21] MEDS: SODIUM CHLORIDE 0.9% FLUSH 10 ML FLUSH IV FLUSH SCH ×2 (09:00→21:43)
[2017-06-21] MEDS: SODIUM CHLOR 0.9% 1000 ML INJ 1,000 ML IV SCH (09:00)
[2017-06-21] MEDS: DOCUSATE SODIUM 50 MG/SENNA 8.6 MG TAB PO SCH ×2 (09:00→21:42)
[2017-06-21] MEDS: THIAMINE HCL 100 MG TAB PO SCH (10:04)
[2017-06-21] MEDS: MULTIVITAMINS/MINERALS THERAPEUTIC TAB PO SCH (10:04)
[2017-06-21] MEDS: FOLIC ACID 1 MG TAB PO SCH (10:04)
[2017-06-21] MEDS: ASPIRIN 81 MG CHEW TAB CHEW SCH (10:04)
[2017-06-21] MEDS: RAMIPRIL 5 MG CAP PO SCH ×2 (10:04→21:43)
[2017-06-21 11:29] LABS: APTT (PATIENT) 58.8 SEC (24.3-30.1)
--- NOTE | 2017-06-21 12:46 | HHI.PR ---
Subjective Remarks 51 y/o male with a history of HTN, Gerd and hypothyroid presented to the ED with complaints of sob and right calf pain. Patient states 2 weeks ago developed dyspnea and right calf pain. 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 He was seen by his PCP and diagnosed with bronchitis and given Ciprofloxacin without any relief. No chest x ray or US was completed outpatient. He denies any chest pain, fever or chills. He does have a cough which is followed by the shortness of breath, and worse with exertion. No sputum production. FOUND TO HAVE BILATERAL PULMONARY EMBOLI 06-20 patient found to have DVTs in the right lower extremity Has pulmonary embolism bilaterally Consult hematology Hopefully can be placed on a novel anticoagulant Have discussed with the patient and RN Has some pain in the right lower extremity and some back pain Continue heparin drip at this time His TSH was elevated will increase his Synthroid to 200 MCG's daily 10- NOTED TO HAVE SEVERE IRON DEFICIENCY ANEMIA DW HEMATOLOGY WANTS CAT SCAN OF ABDOMEN AND PELVIS AND CONSULT GI WELL STOOL FOR OCCULT BLOOD CONTINUE HEPARIN DRIP AT THIS TIME ECHO TO RULE OUT HEART STRAIN STILL HAVING SOB AND PAIN IN RIGHT LE PATIENT WANTS TO SHOWER- WILL HOLD OFF ON THAT UNTIL AFTER ECHO IS BACK Objective Vitals Vital Signs Date Time Temp Pulse Resp B/P (MAP) Pulse Ox O2 Delivery O2 Flow Rate FiO2 06/21/17 08:23 98.0 65 16 119/71 (87) 92 06/21/17 04:00 97.8 71 18 120/66 (84) 97 06/21/17 00:00 98.3 76 18 120/58 (78) 91 06/20/17 20:00 98.3 75 18 121/67 (85) 95 06/20/17 18:31 16 06/20/17 17:07 98.2 75 19 121/65 (83) 96 I/O 06/20/17 06/20/17 06/20/17 06/21/17 06/21/17 06/21/17 07:00 15:00 23:00 07:00 15:00 23:00 # Voids 2 Result Diagram: 06/20/17 0846 06/20/17 0846 Other Results Laboratory Tests Test 06/19/17 21:18 06/20/17 04:04 06/20/17 08:46 06/20/17 12:34 White Blood Count 9.1 TH/MM3 7.7 TH/MM3 Red Blood Count 5.02 MIL/MM3 4.65 MIL/MM3 Hemoglobin 9.1 GM/DL 8.3 GM/DL Hematocrit 30.2 % 28.1 % Mean Corpuscular Volume 60.2 FL 60.6 FL Mean Corpuscular Hemoglobin 18.1 PG 18.0 PG Mean Corpuscular Hemoglobin Concent 30.1 % 29.6 % Red Cell Distribution Width 20.1 % 20.5 % Platelet Count 199 TH/MM3 182 TH/MM3 Mean Platelet Volume 8.5 FL 8.6 FL Prothrombin Time 11.0 SEC 11.0 SEC Prothromb Time International Ratio 1.0 RATIO 1.0 RATIO Activated Partial Thromboplast Time 81.4 SEC 64.5 SEC 53.9 SEC 59.9 SEC Total Creatine Kinase 120 U/L 108 U/L Troponin I LESS THAN 0.02 NG/ML LESS THAN 0.02 NG/ML Free Prostate Specific Antigen 0.3 ng/mL Prostate Specific Antigen Total 1.4 ng/mL Prostate Specific Antign Free/Total . ratio Neutrophils (%) (Auto) 62.4 % Lymphocytes (%) (Auto) 20.7 % Monocytes (%) (Auto) 11.7 % Eosinophils (%) (Auto) 4.1 % Basophils (%) (Auto) 1.1 % Neutrophils # (Auto) 4.8 TH/MM3 Lymphocytes # (Auto) 1.6 TH/MM3 Monocytes # (Auto) 0.9 TH/MM3 Eosinophils # (Auto) 0.3 TH/MM3 Basophils # (Auto) 0.1 TH/MM3 CBC Comment DIFF FINAL Differential Comment Blood Smear Pathologist Review Haptoglobin 144 MG/DL Blood Urea Nitrogen 15 MG/DL Creatinine 1.11 MG/DL Random Glucose 94 MG/DL Total Protein 7.0 GM/DL Albumin 3.5 GM/DL Calcium Level 8.4 MG/DL Phosphorus Level 3.5 MG/DL Magnesium Level 2.8 MG/DL Alkaline Phosphatase 76 U/L Aspartate Amino Transf (AST/SGOT) 23 U/L Alanine Aminotransferase (ALT/SGPT) 30 U/L Total Bilirubin 0.3 MG/DL Sodium Level 139 MEQ/L Potassium Level 3.9 MEQ/L Chloride Level 107 MEQ/L Carbon Dioxide Level 24.5 MEQ/L Anion Gap 8 MEQ/L Estimat Glomerular Filtration Rate 69 ML/MIN Hemoglobin A1c 6.1 % Iron Level 15 MCG/DL Total Iron Binding Capacity 440 MCG/DL Percent Iron Saturation 3.4 % Ferritin 7 NG/ML Lactate Dehydrogenase 231 U/L Vitamin B12 Level 539 PG/ML Folate GREATER THAN 20.0 NG/ML Free Thyroxine 1.30 NG/DL Thyroid Stimulating Hormone 3rd Gen 12.200 uIU/ML Test 06/20/17 20:05 06/21/17 11:05 Activated Partial Thromboplast Time 48.2 SEC 58.8 SEC Imaging Last Impressions Lower Extremity Ultrasound 06/19/17 0000 Signed Impressions: Service Date/Time: Monday, June 19, 2017 17:34 - CONCLUSION: 1. Occlusive thrombus in the right peroneal and posterior tibial vein. 2. No evidence for DVT on the left. Hernesto Starr MD Objective Remarks GENERAL: This is a well-nourished, well-developed patient, in no apparent distress. SKIN: No rashes, ecchymoses or lesions. Cool and dry. HEAD: Atraumatic. Normocephalic. No temporal or scalp tenderness. EYES: Pupils equal round and reactive. Extraocular motions intact. No scleral icterus. No injection or drainage. ENT: Nose without bleeding, purulent drainage or septal hematoma. Throat without erythema, tonsillar hypertrophy or exudate. Uvula midline. Airway patent. Tongue is midline NECK: Trachea midline. No JVD. Supple CARDIOVASCULAR: Regular rate and rhythm without murmurs, gallops, or rubs. RESPIRATORY: Diminished bilateral upper lobes. No wheezes, rales, or rhonchi. GASTROINTESTINAL: Abdomen soft, non-tender, nondistended. BS x 4 MUSCULOSKELETAL: Extremities without clubbing, cyanosis, or edema. Right calf tenderness. NEUROLOGICAL: Awake and alert. Motor and sensory grossly within normal limits. Normal speech. Insight and judgment is good; mood and behaviors are appropriate Medications and IVs Current Medications Sodium Chloride 1,000 ml @ 100 mls/hr Q10H IV Last administered on 06/21/17t 09:00; Start 06/19/17 at 17:00 Sodium Chloride (NS Flush) 2 ml UNSCH PRN IV FLUSH FLUSH AFTER USING IV ACCESS ; Start 06/19/17 at 14:45 Sodium Chloride (NS Flush) 2 ml BID IV FLUSH Last administered on 06/20/17 21: 00; Start 06/19/17 at 21:00 Acetaminophen (Tylenol) 650 mg Q4H PRN PO TEMP > 100.4; Start 06/19/17 at 14:45 Ondansetron HCl (Zofran Inj) 4 mg Q6H PRN IVP NAUSEA OR VOMITING; Start at 14:45 Prochlorperazine (Compazine Supp) 25 mg Q12H PRN RECTAL SEE LABEL COMMENTS; Start 06/19/17 at 14:45 Acetaminophen (Tylenol) 650 mg Q6H PRN PO PAIN SCALE 1 TO 2; Start 06/19/17 at 14:45 Oxycodone/ Acetaminophen (Percocet 5-325 Mg) 1 tab Q6H PRN PO PAIN SCALE 3 TO 5 Last administered on 06/21/17 06:38; Start 06/19/17 at 14:45 Oxycodone/ Acetaminophen (Percocet 10-325 Mg) 1 tab Q6H PRN PO PAIN SCALE 6 TO 10; Start 06/19/17 at 14:45 Morphine Sulfate (Morphine Inj) 2 mg Q3H PRN IV PUSH Pain 3-5; if unable to take PO; Start 06/19/17 at 14:45 Morphine Sulfate (Morphine Inj) 4 mg Q3H PRN IV PUSH Pain 6-10;if unable to take PO Last administered on 06/20/17 05:16; Start 06/19/17 at 14:45 Naloxone HCl (Narcan Inj) 0.4 mg UNSCH PRN IV PUSH SEE LABEL COMMENTS; Start 06/19/17 at 14:45 Senna/Docusate Sodium (Antionette-Colace) 1 tab BID PO Last administered on 21:40; Start 06/19/17 at 21:00 Magnesium Hydroxide (Milk Of Magnesia Liq) 30 ml Q12H PRN PO MILD - MODERATE CONSTIPATION; Start 06/19/17 at 14:45 Sennosides (Senokot) 17.2 mg Q12H PRN PO MODERATE - SEVERE CONSTIPATION; Start 06/19/17 at 14:45 Bisacodyl (Dulcolax Supp) 10 mg DAILY PRN RECTAL SEVERE CONSITIPATION; Start 06/19/17 at 14:45 Lactulose (Lactulose Liq) 30 ml DAILY PRN PO SEVERE CONSITIPATION; Start at 14:45 Heparin Sodium/ Dextrose 250 ml @ 0 mls/hr TITRATE PRN IV Coagulation management; Start 06/19/17 at 14:45; Status UNV Amlodipine Besylate (Norvasc) 10 mg DAILY PO Last administered on 06/21/17 10 :04; Start 06/20/17 at 09:00 Aspirin (Aspirin Chew) 81 mg DAILY CHEW Last administered on 06/21/17 10:04; Start 06/20/17 at 09:00 Pantoprazole Sodium (Protonix) 40 mg DAILY@0600 PO Last administered on 06:38; Start 06/20/17 at 06:00 Levothyroxine Sodium (Synthroid) 150 mcg DAILY@0600 PO Last administered on 05:03; Start 06/20/17 at 06:00; Stop 06/20/17 at 12:10; Status DC Ramipril (Altace) 10 mg BID PO Last administered on 06/21/17 10:04; Start at 21:00 Clonidine (Catapres) 0.1 mg Q4H PRN PO SBP>160, DBP>90; Start 06/19/17 at 14:45 Levothyroxine Sodium (Synthroid) 25 mcg DAILY@0600 PO Last administered on 06/20 05:03; Start 06/20/17 at 06:00; Stop 06/20/17 at 12:10; Status DC Folic Acid (Folate) 1 mg DAILY PO Last administered on 06/21/17 10:04; Start 06/20/17 at 09:00; Stop 06/25/17 at 08:59 Thiamine HCl (Vitamin B1) 100 mg DAILY PO Last administered on 06/21/17 10:04 ; Start 06/20/17 at 09:00 Multivitamins/ Minerals Therapeutic (Theragran M Tab) 1 tab DAILY PO Last administered on 06/21/17 10:04; Start 06/20/17 at 09:00; Stop 06/25/17 at 08: 59 Lorazepam (Ativan) 1 mg Q4H PRN PO [facility] 8 - 10; Start 06/19/17 at 17:45 Lorazepam (Ativan) 2 mg Q2H PRN PO CIWA 11-14; Start 06/19/17 at 17:45 Heparin Sodium/ Dextrose 250 ml @ 17 mls/hr TITRATE IV Last administered on 21:44; Start 06/19/17 at 18:00 Benzonatate (Tessalon) 100 mg TID PRN PO cough interfering with rest Last administered on 06/20/17 23:27; Start 06/19/17 at 23:15 Levothyroxine Sodium (Synthroid) 200 mcg DAILY@0600 PO Last administered on 06:38; Start 06/21/17 at 06:00 Diphenhydramine HCl (Benadryl) 25 mg Q6H PRN PO SEE LABEL COMMENTS; Start 06/28 at 03:45; Status Cancel Urinary Catheter: No Vascular Central Line Catheter: No A/P Problem List: (1) Pulmonary embolism ICD Code: I26.99 - Other pulmonary embolism without acute cor pulmonale (2) Hypothyroid ICD Code: E03.9 - Hypothyroidism, unspecified (3) HTN (hypertension) ICD Code: I10 - Essential (primary) hypertension Assessment and Plan 51 y/o male with a history of HTN, Gerd and hypothyroid presented to the ED with complaints of sob and right calf pain. Pulmonary embolism CTA reviewed and showed positive PE -Bilateral Doppler ultrasound to rule out DVT -Hypercoag labs ordered, will consult hematology if needed -Heparin Drip ordered Ultrasound shows right lower extremity DVTs Consult hematology Hypertension, chronic -Resume home amlodipine and ramipril -Monitor Vitals -Clonidine PRN Hypothyroid, chronic -Resume home medication levothyroxine -TSH pending Increase Synthroid to 200 MCG's by mouth daily due to the elevated TSH Alcohol abuse, 6-8 beers a day -[facility] protocol ordered -Withdraw/seizure precautions -Encouraged to quit IRON DEFICIENCY ANEMIA- WILL CHECK CAT SCAN OF ABDOMEN/PELVIS STOOL FOR OCCULT BLOOD CONSULT GI- RULE ON MALIGNANCY DUE TO CLOTS AND IRON DEFICIENCY DW PATIENT AND RN AND HEMATOLOGY DVT prophylaxis: Heparin DRIP GI prophylaxis: Protonix Discharge Planning NEEDS ECHO AND CAT SCAN OF ABDOMEN/PELVIS AND GI CONSULTS Wild Ibanez DO Jun 21, 2017 12:46
--- NOTE | 2017-06-21 15:44 | PD.CONS ---
HPI History of Present Illness This is a 52 year old male with hx ETOH abuse, HTN who presented to hospital with SOB, right leg pain, cough. He was found to have bilat PEs and right leg DVT, on heparin now. He is anemic, hgb was 9.1 on admission. he says he has been told by his PCP that he is iron deficient. He does admit black tarry stool yesterday and a few times in the last 2 weeks. He has been taking ibuprofen frequently in the last 2 weeks. His last colonoscopy was [address] Vasquez in [place] and findings were polyps; had EGD with dilatation [address] Vasquez. Has reflux on PPI. Denies n/v, blood in stool, weight loss. (Alexandria Thompson) PFSH Past Medical History HTN GERD Hypothyroid Past Surgical History Patient denies any surgical history (Alexandria Thompson) Coded Allergies: Penicillins (Verified Allergy, Unknown, Swelling, 06/19/17) Family History heart disease brother - clots/DVT Social History Tobacco use: denies Alcohol use: 6-8 beers a day Illicit drug use: Denies (Alexandria Thompson) Review of Systems Constitutional: DENIES: Fever, Weight loss Eyes: DENIES: Photosensitivity Ears, nose, mouth, throat: DENIES: Throat pain Respiratory: DENIES: Hemoptysis Gastrointestinal: COMPLAINS OF: Black stools, DENIES: Abdominal pain, Bloody stools, Constipation, Diarrhea, Nausea, Vomiting, Difficulty Swallowing, Hematemesis Genitourinary: DENIES: Hematuria Musculoskeletal: DENIES: Joint Swelling Integumentary: DENIES: Pruritus Hematologic/lymphatic: DENIES: Lymphadenopathy Neurologic: DENIES: Abnormal gait Psychiatric: DENIES: Confusion (Alexandria Thompson) GI Exam Vitals I&O Vital Signs Date Time Temp Pulse Resp B/P (MAP) Pulse Ox O2 Delivery O2 Flow Rate FiO2 06/21/17 12:33 98.2 66 18 115/69 (84) 98 06/21/17 08:23 98.0 65 16 119/71 (87) 92 06/21/17 04:00 97.8 71 18 120/66 (84) 97 06/21/17 00:00 98.3 76 18 120/58 (78) 91 06/20/17 20:00 98.3 75 18 121/67 (85) 95 06/20/17 18:31 16 06/20/17 17:07 98.2 75 19 121/65 (83) 96 I/O 06/20/17 06/20/17 06/20/17 06/21/17 06/21/17 06/21/17 07:00 15:00 23:00 07:00 15:00 23:00 # Voids 2 Imaging Last Impressions Lower Extremity Ultrasound 06/19/17 0000 Signed Impressions: Service Date/Time: Monday, June 19, 2017 17:34 - CONCLUSION: 1. Occlusive thrombus in the right peroneal and posterior tibial vein. 2. No evidence for DVT on the left. Hernesto Starr MD Laboratory Test 06/20/17 20:05 06/21/17 11:05 Activated Partial Thromboplast Time 48.2 SEC 58.8 SEC Physical Examination HEENT: PERRL; normocephalic; atraumatic; no jaundice. CHEST: CTA CARDIAC: RRR ABDOMEN: Soft, nondistended, nontender; no hepatosplenomegaly; bowel sounds are present in all four quadrants. EXTREMITIES: No clubbing, cyanosis; right BLE appears slightly larger than left , tender SKIN: Normal; no rash; no jaundice. BELT FIXER: No focal deficits; alert and oriented times three. (Alexandria Thompson) Assessment and Plan Plan ASSESSMENT - anemia, questionable melena - hgb 9.1 on admission, hypochromic, microcytic, has dropped to 8.3. last colonoscopy 4y ago found polyps EGD and dilatation 7y ago. iron 15L, TIBC 440, sat 3.4%L ferritin 7L. - bilat PE, DVT RLE per primary, on heparin PLAN - CT abd/pelvis - occult blood stool - consider EGD colonoscopy in few months when anticoag can be stopped - monitor HH - transfuse as necessary - supportive care - further recs to follow This pt seen by myself and Dr Virgen and this note is written on his behalf (Alexandria Thompson) Physician Comments seen and examined withARNP., No active bleeding. Reports chronic anemia over the years requiring iron therapy in the past. Family history of DVTs in brother. Previous colonoscopy with polyps. Doubt this is related o malignancy but CT abd/pelvis ordered. EGD/Colonoscopy in a few weeks once able to stop anticoagulation for the procedures , unless has active bleeding. Monitor labs, anticoagulate as needed. Will follow. Thank you (Temi Virgen MD) Alexandria Thompson Jun 21, 2017 15:44 Temi Virgen MD Jun 21, 2017 17:13
[2017-06-21] MEDS ORDERED: DIATRIZOATE MEGLUM/DIATRIZOATE SOD 9 ML CUP PO ONE (16:15)
[2017-06-21] MEDS: HEPARIN 25,000 UNITS-D5W 250 ML - PREMIX IV SCH (16:25)
--- NOTE | 2017-06-21 16:55 | ECHRPT ---
Indication: Shortness of breath CONCLUSIONS The left ventricular systolic function is normal with an estimated ejection fraction in the range of 55-60%. Mild concentric left ventricular hypertrophy. Trace mitral valve regurgitation. There is trace tricuspid valve regurgitation. BP: 119 / 71 HR: 65 Rhythm: Sinus MEASUREMENTS (Male / Female) Normal Values Technical Quality:Fair 2D ECHO LV Diastolic Diameter PLAX 4.9 cm 4.2 - 5.9 / 3.9 - 5.3 cm LV Systolic Diameter PLAX 3.5 cm IVS Diastolic Thickness 1.2 cm 0.6 - 1.0 / 0.6 - 0.9 cm LVPW Diastolic Thickness 1.2 cm 0.6 - 1.0 / 0.6 - 0.9 cm LV Relative Wall Thickness 0.5 LVOT Diameter 2.4 cm M-MODE Aortic Root Diameter MM 2.5 cm LA Systolic Diameter MM 3.5 cm LA Ao Ratio MM 1.4 AV Cusp Separation MM 2.1 cm DOPPLER AV Peak Velocity 141.0 cm/s AV Peak Gradient 8.0 mmHg LVOT Peak Velocity 99.2 cm/s LVOT Peak Gradient 3.9 mmHg AV Area Cont Eq pk 3.2 cm Mitral E Point Velocity 63.7 cm/s Mitral A Point Velocity 60.7 cm/s Mitral E to A Ratio 1.0 LV E' Lateral Velocity 10.4 cm/s Mitral E to LV E' Lateral Ratio 6.1 LV E' Septal Velocity 9.7 cm/s Mitral E to LV E' Septal Ratio 6.6 PV Peak Velocity 122.0 cm/s PV Peak Gradient 6.0 mmHg FINDINGS LEFT VENTRICLE The left ventricular systolic function is normal with an estimated ejection fraction in the range of 55-60%. Mild concentric left ventricular hypertrophy. Normal left ventricular size. There was limited left ventricular wall motion assessment due to poor endocardial visualization. RIGHT VENTRICLE Normal right ventricular size. In limited views, RV function appears normal LEFT ATRIUM The left atrial size is normal. RIGHT ATRIUM The right atrial size is normal. ATRIAL SEPTUM The interatrial septum not well visualized. AORTA The aortic root and proximal ascending aorta are normal in size on limited imaging. MITRAL VALVE Structurally normal mitral valve. No mitral valve stenosis. Trace mitral valve regurgitation. AORTIC VALVE Trileaflet aortic valve. No aortic valve stenosis or regurgitation. TRICUSPID VALVE Structurally normal tricuspid valve. No tricuspid valve stenosis. There is trace tricuspid valve regurgitation. PULMONARY VALVE The pulmonary valve is not well visualized. VESSELS The inferior vena cava is normal in size. PERICARDIUM No pericardial effusion. Sen Olguin DO (Electronically Signed) Final Date:21 June 2017 16:54
--- NOTE | 2017-06-21 17:27 | PD.ONC.PN ---
Subjective Subjective Remarks Resting comfortably in bedside chair in no distress. Objective Data Date Time Temp Pulse Resp B/P (MAP) Pulse Ox O2 Delivery O2 Flow Rate FiO2 06/21/17 15:52 98.4 82 18 113/62 (79) 100 06/21/17 12:33 98.2 66 18 115/69 (84) 98 06/21/17 08:23 98.0 65 16 119/71 (87) 92 06/21/17 04:00 97.8 71 18 120/66 (84) 97 06/21/17 00:00 98.3 76 18 120/58 (78) 91 06/20/17 20:00 98.3 75 18 121/67 (85) 95 06/20/17 18:31 16 06/21/17 06/21/17 06/21/17 07:00 15:00 23:00 Intake Total 530 ml Balance 530 ml Result Diagram: 06/20/17 0846 06/20/17 0846 Laboratory Results Laboratory Tests Test 06/20/17 20:05 06/21/17 11:05 Activated Partial Thromboplast Time 48.2 SEC 58.8 SEC Administered Medications Medications (Trade) Dose Ordered Sig/Carmita Route PRN Reason Start Time Stop Time Status Last Admin Dose Admin Sodium Chloride (NS Flush) 2 ml BID IV FLUSH 06/19/17 21:00 06/20/17 21:00 Oxycodone/ Acetaminophen (Percocet 5-325 Mg) 1 tab Q6H PRN PO PAIN SCALE 3 TO 5 06/19/17 14:45 06/21/17 06:38 Morphine Sulfate (Morphine Inj) 4 mg Q3H PRN IV PUSH Pain 6-10;if unable to take PO 06/19/17 14:45 06/20/17 05:16 Senna/Docusate Sodium (Antionette-Colace) 1 tab BID PO 06/19/17 21:00 06/20/17 21:40 Amlodipine Besylate (Norvasc) 10 mg DAILY PO 06/20/17 09:00 06/21/17 10:04 Aspirin (Aspirin Chew) 81 mg DAILY CHEW 06/20/17 09:00 06/21/17 10:04 Pantoprazole Sodium (Protonix) 40 mg DAILY@0600 PO 06/20/17 06:00 06/21/17 06:38 Ramipril (Altace) 10 mg BID PO 06/19/17 21:00 06/21/17 10:04 Folic Acid (Folate) 1 mg DAILY PO 06/20/17 09:00 06/25/17 08:59 06/21/17 10:04 Thiamine HCl (Vitamin B1) 100 mg DAILY PO 06/20/17 09:00 06/21/17 10:04 Multivitamins/ Minerals Therapeutic (Theragran M Tab) 1 tab DAILY PO 06/20/17 09:00 06/25/17 08:59 06/21/17 10:04 Heparin Sodium/ Dextrose 250 ml @ 17 mls/hr TITRATE IV 06/19/17 18:00 06/21/17 16:25 Benzonatate (Tessalon) 100 mg TID PRN PO cough interfering with rest 06/19/17 23:15 06/20/17 23:27 Levothyroxine Sodium (Synthroid) 200 mcg DAILY@0600 PO 06/21/17 06:00 06/21/17 06:38 Objective Remarks GENERAL: Well-nourished, well-developed patient. SKIN: Warm and dry. HEAD: Normocephalic. EYES: No scleral icterus. No injection or drainage. RESPIRATORY: No accessory muscle use. NEUROLOGICAL: No obvious focal deficit. Awake, alert, and oriented x3. PSYCHIATRIC: Appropriate mood and affect; insight and judgment normal. Assessment/Plan Assessment 1. VTE: unprovoked. Discussed outpatient anticoagulation with patient and including warfarin, rivaroxaban and apixaban. 2. NEAL: severe with ferritin of 7. Discussed IV iron therapy and patient reports that he will discuss with and consider. GI team has been consulted. CT abdomen/pelvis, stool for occult blood pending. Chuyita Stevneson MD Jun 21, 2017 17:27
[2017-06-21] MEDS ORDERED: IOHEXOL 350 MG/ML 10 ML VIAL (for RAD DIAG) IVCONTRAST ONE (20:27)
--- NOTE | 2017-06-21 20:38 | RADRPT ---
EXAM DATE/TIME: 06/21/2017 20:23 [facility] COMPARISON: No previous studies available for comparison. INDICATIONS : Blood in stool. IV CONTRAST: 95 cc Omnipaque 350 (iohexol) IV ORAL CONTRAST: Prescribed oral contrast ingested. RADIATION DOSE: 13.52 CTDIvol (mGy) MEDICAL HISTORY : Cardiovascular disease. Hypertension. SURGICAL HISTORY : None. ENCOUNTER: Initial ACUITY: 1 day PAIN SCALE: 0/10 LOCATION: Bilateral abdomen TECHNIQUE: Volumetric scanning of the abdomen and pelvis was performed. Using automated exposure control and ad justment of the mA and/or kV according to patient size, radiation dose was kept as low as reasonably achievable to obtain optimal diagnostic quality images. DICOM format image data is available electro nically for review and comparison. FINDINGS: LOWER LUNGS: The visualized lower lungs are clear. Heart size is enlarged. LIVER: Homogeneous density without lesion. There is no dilation of the biliary tree. No calcified gallston es. SPLEEN: Normal size without lesion. PANCREAS: Within normal limits. KIDNEYS: Normal in size and shape. There is no mass, stone or hydronephrosis. ADRENAL GLANDS: Within normal limits. VASCULAR: There is no aortic aneurysm. BOWEL/MESENTERY: The stomach, small bowel, and colon demonstrate no acute abnormality. There is no free intraperitone al air or fluid. The appendix is unremarkable. No inflammatory changes. ABDOMINAL WALL: Within normal limits. RETROPERITONEUM: There is no lymphadenopathy. BLADDER: No wall thickening or mass. REPRODUCTIVE: The prostate gland measures 6.1 cm. INGUINAL: There is no lymphadenopathy or hernia. MUSCULOSKELETAL: Within normal limits for patient age. CONCLUSION: 1. Diffuse enlargement of the prostate at 6.1 cm. 2. Otherwise, unremarkable CT abdomen and pelvis. 3. Compensated cardiomegaly. Bola Coe MD on June 21, 2017 at 20:34 Board Certified Radiologist. This report was verified electronically.
[2017-06-22] MEDS: oxyCODONE/ACETAMINOPHEN 5 MG/325 MG TAB PO PRN ×2 (00:45→05:13)
[2017-06-22] MEDS: BENZONATATE 100 MG CAP PO PRN (00:48)
[2017-06-22] MEDS: LEVOTHYROXINE SODIUM 200 MCG TAB PO SCH (05:12)
[2017-06-22] MEDS: PANTOPRAZOLE SOD 40 MG DELAYED RELEASE TAB PO SCH (05:12)
[2017-06-22 05:15] VITALS: BP 119/76; PULSE 70; RESP 18; TEMP 98; O2SAT 97
[2017-06-22 08:32] VITALS: BP 114/70; PULSE 67; RESP 16; TEMP 98.4; O2SAT 96
[2017-06-22 08:46] LABS: AUTOMATED NEUTROPHIL # 3.6 TH/MM3 (1.8-7.7); BASOPHIL # 0.1 TH/MM3 (0-0.2); BASOPHIL % 1.8 % (0.0-2.0); EOSINOPHIL # 0.3 TH/MM3 (0-0.4); EOSINOPHIL % 4.3 % (0.0-4.0); HEMATOCRIT 25.3 % (39.0-51.0); HEMO FLAGS DIFF FINAL; LYMPH % 20.2 % (9.0-44.0); LYMPHOCYTE # 1.2 TH/MM3 (1.0-4.8); MEAN CELL VOLUME 60.9 FL (80.0-100.0); MEAN CORPUSCULAR HEMOGLOBIN 18.4 PG (27.0-34.0); MEAN CORPUSCULAR HGB CONC 30.2 % (32.0-36.0); MONO % 12.2 % (0.0-8.0); NEUT % 61.5 % (16.0-70.0); PLATELET COUNT 197 TH/MM3 (150-450); RED BLOOD COUNT 4.16 MIL/MM3 (4.50-5.90); RED CELL DISTRIBUTION WIDTH 20.2 % (11.6-17.2); WHITE BLOOD COUNT 5.9 TH/MM3 (4.0-11.0)
[2017-06-22 08:51] LABS: APTT (PATIENT) 53.2 SEC (24.3-30.1); PROTHROMBIN TIME - PATIENT 10.9 SEC (9.8-11.6)
[2017-06-22] MEDS: DOCUSATE SODIUM 50 MG/SENNA 8.6 MG TAB PO SCH (09:00)
[2017-06-22] MEDS: SODIUM CHLORIDE 0.9% FLUSH 10 ML FLUSH IV FLUSH SCH (09:00)
[2017-06-22 09:02] LABS: ALT (GPT) 29 U/L (12-78); ANION GAP 9 MEQ/L (5-15); AST (GOT) 25 U/L (15-37); BICARBONATE 22.8 MEQ/L (21.0-32.0); BLOOD UREA NITROGEN 12 MG/DL (7-18); CHLORIDE 106 MEQ/L (98-107); GLOMERULAR FILTRATION RATE 70 ML/MIN (>89); MAGNESIUM 2.7 MG/DL (1.5-2.5); POTASSIUM 3.7 MEQ/L (3.5-5.1); SODIUM (NA) 138 MEQ/L (136-145)
[2017-06-22 09:05] LABS: ALKALINE PHOSPHATASE 71 U/L (45-117); TOTAL BILIRUBIN ADULT 0.3 MG/DL (0.2-1.0)
[2017-06-22] MEDS: FOLIC ACID 1 MG TAB PO SCH (10:52)
[2017-06-22] MEDS: MULTIVITAMINS/MINERALS THERAPEUTIC TAB PO SCH (10:52)
[2017-06-22] MEDS: THIAMINE HCL 100 MG TAB PO SCH (10:52)
[2017-06-22] MEDS: RAMIPRIL 5 MG CAP PO SCH (10:52)
[2017-06-22] MEDS: ASPIRIN 81 MG CHEW TAB CHEW SCH (10:53)
[2017-06-22] MEDS: HEPARIN 25,000 UNITS-D5W 250 ML - PREMIX IV SCH (10:58)
--- NOTE | 2017-06-22 11:24 | PD.ONC.PN ---
Subjective Subjective Remarks Patient is resting comfortably in bed in no distress. Reports improvement in symptoms of leg pain and dyspnea. Objective Data Date Time Temp Pulse Resp B/P (MAP) Pulse Ox O2 Delivery O2 Flow Rate FiO2 06/22/17 08:32 98.4 67 16 114/70 (85) 96 06/22/17 05:15 98.0 70 18 119/76 (90) 97 06/21/17 22:00 70 06/21/17 20:00 99.0 85 18 133/72 (92) 98 06/21/17 18:00 67 06/21/17 15:52 98.4 82 18 113/62 (79) 100 06/21/17 12:33 98.2 66 18 115/69 (84) 98 06/21/17 11:59 98.4 98 18 121/65 (83) 98 06/22/17 06/22/17 06/22/17 06:59 14:59 22:59 Intake Total 180 ml Balance 180 ml Result Diagram: 06/22/17 0738 06/22/17 0738 Laboratory Results Laboratory Tests Test 06/22/17 07:38 White Blood Count 5.9 TH/MM3 Red Blood Count 4.16 MIL/MM3 Hemoglobin 7.6 GM/DL Hematocrit 25.3 % Mean Corpuscular Volume 60.9 FL Mean Corpuscular Hemoglobin 18.4 PG Mean Corpuscular Hemoglobin Concent 30.2 % Red Cell Distribution Width 20.2 % Platelet Count 197 TH/MM3 Mean Platelet Volume 8.6 FL Neutrophils (%) (Auto) 61.5 % Lymphocytes (%) (Auto) 20.2 % Monocytes (%) (Auto) 12.2 % Eosinophils (%) (Auto) 4.3 % Basophils (%) (Auto) 1.8 % Neutrophils # (Auto) 3.6 TH/MM3 Lymphocytes # (Auto) 1.2 TH/MM3 Monocytes # (Auto) 0.7 TH/MM3 Eosinophils # (Auto) 0.3 TH/MM3 Basophils # (Auto) 0.1 TH/MM3 CBC Comment DIFF FINAL Differential Comment Prothrombin Time 10.9 SEC Prothromb Time International Ratio 1.0 RATIO Activated Partial Thromboplast Time 53.2 SEC Blood Urea Nitrogen 12 MG/DL Creatinine 1.10 MG/DL Random Glucose 95 MG/DL Total Protein 6.9 GM/DL Albumin 3.6 GM/DL Calcium Level 8.9 MG/DL Phosphorus Level 3.6 MG/DL Magnesium Level 2.7 MG/DL Alkaline Phosphatase 71 U/L Aspartate Amino Transf (AST/SGOT) 25 U/L Alanine Aminotransferase (ALT/SGPT) 29 U/L Total Bilirubin 0.3 MG/DL Sodium Level 138 MEQ/L Potassium Level 3.7 MEQ/L Chloride Level 106 MEQ/L Carbon Dioxide Level 22.8 MEQ/L Anion Gap 9 MEQ/L Estimat Glomerular Filtration Rate 70 ML/MIN Culture Results Microbiology Date/Time Source Procedure Growth Status 06/21/17 22:45 Stool Stool Stool Occult Blood (RACHEL) - Final HEMOCCULT POSITIVE Complete Imaging Studies Last 24 hours Impressions Abdomen/Pelvis CT 06/21/17 1851 Signed Impressions: Service Date/Time: Wednesday, June 21, 2017 20:23 - CONCLUSION: 1. Diffuse enlargement of the prostate at 6.1 cm. 2. Otherwise, unremarkable CT abdomen and pelvis. 3. Compensated cardiomegaly. Bola Coe MD Administered Medications Medications (Trade) Dose Ordered Sig/Carmita Route PRN Reason Start Time Stop Time Status Last Admin Dose Admin Sodium Chloride (NS Flush) 2 ml BID IV FLUSH 06/19/17 21:00 06/21/17 21:43 Oxycodone/ Acetaminophen (Percocet 5-325 Mg) 1 tab Q6H PRN PO PAIN SCALE 3 TO 5 06/19/17 14:45 06/22/17 05:13 Morphine Sulfate (Morphine Inj) 4 mg Q3H PRN IV PUSH Pain 6-10;if unable to take PO 06/19/17 14:45 06/20/17 05:16 Senna/Docusate Sodium (Antionette-Colace) 1 tab BID PO 06/19/17 21:00 06/21/17 21:42 Amlodipine Besylate (Norvasc) 10 mg DAILY PO 06/20/17 09:00 06/22/17 10:52 Aspirin (Aspirin Chew) 81 mg DAILY CHEW 06/20/17 09:00 06/22/17 10:53 Pantoprazole Sodium (Protonix) 40 mg DAILY@0600 PO 06/20/17 06:00 06/22/17 05:12 Ramipril (Altace) 10 mg BID PO 06/19/17 21:00 06/22/17 10:52 Folic Acid (Folate) 1 mg DAILY PO 06/20/17 09:00 06/25/17 08:59 06/22/17 10:52 Thiamine HCl (Vitamin B1) 100 mg DAILY PO 06/20/17 09:00 06/22/17 10:52 Multivitamins/ Minerals Therapeutic (Theragran M Tab) 1 tab DAILY PO 06/20/17 09:00 06/25/17 08:59 06/22/17 10:52 Heparin Sodium/ Dextrose 250 ml @ 17 mls/hr TITRATE IV 06/19/17 18:00 06/22/17 10:58 Benzonatate (Tessalon) 100 mg TID PRN PO cough interfering with rest 06/19/17 23:15 06/22/17 00:48 Levothyroxine Sodium (Synthroid) 200 mcg DAILY@0600 PO 06/21/17 06:00 06/22/17 05:12 Objective Remarks GENERAL: Well-nourished, well-developed patient. SKIN: Warm and dry. HEAD: Normocephalic. EYES: No scleral icterus. No injection or drainage. LYMPHATIC: No adenopathy. CARDIOVASCULAR: Regular rate and rhythm without murmurs. RESPIRATORY: Breath sounds equal bilaterally. No accessory muscle use. GASTROINTESTINAL: Abdomen soft, non-tender, nondistended. EXTREMITIES: No cyanosis, or edema. MUSCULOSKELETAL: Adequate muscle tone. NEUROLOGICAL: No obvious focal deficit. Awake, alert, and oriented x3. PSYCHIATRIC: Appropriate mood and affect; insight and judgment normal. Assessment/Plan Assessment 1. VTE: unprovoked. Extensive discussion with patient and regarding risks vs benefits of each anticoagulant. He has elected to proceed with apixaban. He will need to take apixaban 10 mg PO BID x 7 days following by 5mg BID. He will need to be on anticoagulation for a minimum of three months and likely indefinitely. 2. NEAL: severe with ferritin of 7. CT abdomen/pelvis unremarkable. Patient with colonoscopy within the past 3-4 years with removal of benign polyps. Hemoccult positive. GI team will plan to for scope once he is further out from acute VTE and can safely stop anticoagulation. Will arrange for close follow up in hematology clinic for follow up of CBC and for IV iron therapy. He will be discharge on oral iron therapy. Chuyita Stevenson MD Jun 22, 2017 11:24
[2017-06-22 12:12] VITALS: BP 126/73; PULSE 71; RESP 17; TEMP 97.4; O2SAT 97
[2017-06-22] MEDS ORDERED: APIXABAN 5 MG TABLET PO SCH (13:00)
--- NOTE | 2017-06-22 15:00 | HHI.PR ---
Subjective Remarks 51 y/o male with a history of HTN, Gerd and hypothyroid presented to the ED with complaints of sob and right calf pain. Patient states 2 weeks ago developed dyspnea and right calf pain. 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 He was seen by his PCP and diagnosed with bronchitis and given Ciprofloxacin without any relief. No chest x ray or US was completed outpatient. He denies any chest pain, fever or chills. He does have a cough which is followed by the shortness of breath, and worse with exertion. No sputum production. FOUND TO HAVE BILATERAL PULMONARY EMBOLI 10-9 patient found to have DVTs in the right lower extremity Has pulmonary embolism bilaterally Consult hematology Hopefully can be placed on a novel anticoagulant Have discussed with the patient and RN Has some pain in the right lower extremity and some back pain Continue heparin drip at this time His TSH was elevated will increase his Synthroid to 200 MCG's daily 10-10 NOTED TO HAVE SEVERE IRON DEFICIENCY ANEMIA DW HEMATOLOGY WANTS CAT SCAN OF ABDOMEN AND PELVIS AND CONSULT GI WELL STOOL FOR OCCULT BLOOD CONTINUE HEPARIN DRIP AT THIS TIME ECHO TO RULE OUT HEART STRAIN STILL HAVING SOB AND PAIN IN RIGHT LE PATIENT WANTS TO SHOWER- WILL HOLD OFF ON THAT UNTIL AFTER ECHO IS BACK 1011 HAS BEEN CLEARED BY GI AND HEMATOLOGY TO CONTINUE ON XARELTO 10MG BID FOR 7 DAYS THEN 5MG PO BID FROM THERE ON DC TO HOME TODAY ECHO STABLE CT ABD/PELVIS STABLE FOLLOW UP PCP FOLLOW UP DR COLE FOLLOW UP GI DR WESTON Objective Vitals Vital Signs Date Time Temp Pulse Resp B/P (MAP) Pulse Ox O2 Delivery O2 Flow Rate FiO2 06/22/17 12:12 97.4 71 17 126/73 (90) 97 06/22/17 08:32 98.4 67 16 114/70 (85) 96 06/22/17 05:15 98.0 70 18 119/76 (90) 97 06/21/17 22:00 70 06/21/17 20:00 99.0 85 18 133/72 (92) 98 06/21/17 18:00 67 06/21/17 15:52 98.4 82 18 113/62 (79) 100 I/O 06/21/17 06/21/17 06/21/17 06/22/17 06/22/17 06/22/17 07:00 15:00 23:00 07:00 15:00 23:00 Intake Total 360 ml 530 ml 180 ml Balance 360 ml 530 ml 180 ml Intake Oral 360 ml IV Total 530 ml 180 ml # Voids 1 3 2 # Bowel Movements 1 1 Result Diagram: 06/22/17 0738 06/22/1738 Other Results Laboratory Tests Test 06/19/17 21:18 06/20/17 04:04 06/20/17 08:46 06/20/17 12:34 White Blood Count 9.1 TH/MM3 7.7 TH/MM3 Red Blood Count 5.02 MIL/MM3 4.65 MIL/MM3 Hemoglobin 9.1 GM/DL 8.3 GM/DL Hematocrit 30.2 % 28.1 % Mean Corpuscular Volume 60.2 FL 60.6 FL Mean Corpuscular Hemoglobin 18.1 PG 18.0 PG Mean Corpuscular Hemoglobin Concent 30.1 % 29.6 % Red Cell Distribution Width 20.1 % 20.5 % Platelet Count 199 TH/MM3 182 TH/MM3 Mean Platelet Volume 8.5 FL 8.6 FL Prothrombin Time 11.0 SEC 11.0 SEC Prothromb Time International Ratio 1.0 RATIO 1.0 RATIO Activated Partial Thromboplast Time 81.4 SEC 64.5 SEC 53.9 SEC 59.9 SEC Total Creatine Kinase 120 U/L 108 U/L Troponin I LESS THAN 0.02 NG/ML LESS THAN 0.02 NG/ML Free Prostate Specific Antigen 0.3 ng/mL Prostate Specific Antigen Total 1.4 ng/mL Prostate Specific Antign Free/Total . ratio Neutrophils (%) (Auto) 62.4 % Lymphocytes (%) (Auto) 20.7 % Monocytes (%) (Auto) 11.7 % Eosinophils (%) (Auto) 4.1 % Basophils (%) (Auto) 1.1 % Neutrophils # (Auto) 4.8 TH/MM3 Lymphocytes # (Auto) 1.6 TH/MM3 Monocytes # (Auto) 0.9 TH/MM3 Eosinophils # (Auto) 0.3 TH/MM3 Basophils # (Auto) 0.1 TH/MM3 CBC Comment DIFF FINAL Differential Comment Blood Smear Pathologist Review Haptoglobin 144 MG/DL Blood Urea Nitrogen 15 MG/DL Creatinine 1.11 MG/DL Random Glucose 94 MG/DL Total Protein 7.0 GM/DL Albumin 3.5 GM/DL Calcium Level 8.4 MG/DL Phosphorus Level 3.5 MG/DL Magnesium Level 2.8 MG/DL Alkaline Phosphatase 76 U/L Aspartate Amino Transf (AST/SGOT) 23 U/L Alanine Aminotransferase (ALT/SGPT) 30 U/L Total Bilirubin 0.3 MG/DL Sodium Level 139 MEQ/L Potassium Level 3.9 MEQ/L Chloride Level 107 MEQ/L Carbon Dioxide Level 24.5 MEQ/L Anion Gap 8 MEQ/L Estimat Glomerular Filtration Rate 69 ML/MIN Hemoglobin A1c 6.1 % Iron Level 15 MCG/DL Total Iron Binding Capacity 440 MCG/DL Percent Iron Saturation 3.4 % Ferritin 7 NG/ML Lactate Dehydrogenase 231 U/L Vitamin B12 Level 539 PG/ML Folate GREATER THAN 20.0 NG/ML Free Thyroxine 1.30 NG/DL Thyroid Stimulating Hormone 3rd Gen 12.200 uIU/ML Test 06/20/17 20:05 06/21/17 11:05 06/22/17 07:38 Activated Partial Thromboplast Time 48.2 SEC 58.8 SEC 53.2 SEC White Blood Count 5.9 TH/MM3 Red Blood Count 4.16 MIL/MM3 Hemoglobin 7.6 GM/DL Hematocrit 25.3 % Mean Corpuscular Volume 60.9 FL Mean Corpuscular Hemoglobin 18.4 PG Mean Corpuscular Hemoglobin Concent 30.2 % Red Cell Distribution Width 20.2 % Platelet Count 197 TH/MM3 Mean Platelet Volume 8.6 FL Neutrophils (%) (Auto) 61.5 % Lymphocytes (%) (Auto) 20.2 % Monocytes (%) (Auto) 12.2 % Eosinophils (%) (Auto) 4.3 % Basophils (%) (Auto) 1.8 % Neutrophils # (Auto) 3.6 TH/MM3 Lymphocytes # (Auto) 1.2 TH/MM3 Monocytes # (Auto) 0.7 TH/MM3 Eosinophils # (Auto) 0.3 TH/MM3 Basophils # (Auto) 0.1 TH/MM3 CBC Comment DIFF FINAL Differential Comment Prothrombin Time 10.9 SEC Prothromb Time International Ratio 1.0 RATIO Blood Urea Nitrogen 12 MG/DL Creatinine 1.10 MG/DL Random Glucose 95 MG/DL Total Protein 6.9 GM/DL Albumin 3.6 GM/DL Calcium Level 8.9 MG/DL Phosphorus Level 3.6 MG/DL Magnesium Level 2.7 MG/DL Alkaline Phosphatase 71 U/L Aspartate Amino Transf (AST/SGOT) 25 U/L Alanine Aminotransferase (ALT/SGPT) 29 U/L Total Bilirubin 0.3 MG/DL Sodium Level 138 MEQ/L Potassium Level 3.7 MEQ/L Chloride Level 106 MEQ/L Carbon Dioxide Level 22.8 MEQ/L Anion Gap 9 MEQ/L Estimat Glomerular Filtration Rate 70 ML/MIN Imaging Last Impressions Abdomen/Pelvis CT 06/21/17 1851 Signed Impressions: Service Date/Time: Wednesday, June 21, 2017 20:23 - CONCLUSION: 1. Diffuse enlargement of the prostate at 6.1 cm. 2. Otherwise, unremarkable CT abdomen and pelvis. 3. Compensated cardiomegaly. Bola Coe MD Lower Extremity Ultrasound 06/19/17 0000 Signed Impressions: Service Date/Time: Monday, June 19, 2017 17:34 - CONCLUSION: 1. Occlusive thrombus in the right peroneal and posterior tibial vein. 2. No evidence for DVT on the left. Hernesto Starr MD Objective Remarks GENERAL: This is a well-nourished, well-developed patient, in no apparent distress. SKIN: No rashes, ecchymoses or lesions. Cool and dry. HEAD: Atraumatic. Normocephalic. No temporal or scalp tenderness. EYES: Pupils equal round and reactive. Extraocular motions intact. No scleral icterus. No injection or drainage. ENT: Nose without bleeding, purulent drainage or septal hematoma. Throat without erythema, tonsillar hypertrophy or exudate. Uvula midline. Airway patent. Tongue is midline NECK: Trachea midline. No JVD. Supple CARDIOVASCULAR: Regular rate and rhythm without murmurs, gallops, or rubs. RESPIRATORY: Diminished bilateral upper lobes. No wheezes, rales, or rhonchi. GASTROINTESTINAL: Abdomen soft, non-tender, nondistended. BS x 4 MUSCULOSKELETAL: Extremities without clubbing, cyanosis, or edema. Right calf tenderness. NEUROLOGICAL: Awake and alert. Motor and sensory grossly within normal limits. Normal speech. Insight and judgment is good; mood and behaviors are appropriate Procedures NONE Medications and IVs Current Medications Sodium Chloride 1,000 ml @ 100 mls/hr Q10H IV Last administered on 06/21/17t 09:00; Start 06/19/17 at 17:00; Stop 06/21/17 at 13:18; Status DC Sodium Chloride (NS Flush) 2 ml UNSCH PRN IV FLUSH FLUSH AFTER USING IV ACCESS ; Start 06/19/17 at 14:45 Sodium Chloride (NS Flush) 2 ml BID IV FLUSH Last administered on 06/21/17 21 :43; Start 06/19/17 at 21:00 Acetaminophen (Tylenol) 650 mg Q4H PRN PO TEMP > 100.4; Start 06/19/17 at 14:45 Ondansetron HCl (Zofran Inj) 4 mg Q6H PRN IVP NAUSEA OR VOMITING; Start at 14:45 Prochlorperazine (Compazine Supp) 25 mg Q12H PRN RECTAL SEE LABEL COMMENTS; Start 06/19/17 at 14:45 Acetaminophen (Tylenol) 650 mg Q6H PRN PO PAIN SCALE 1 TO 2; Start 06/19/17 at 14:45 Oxycodone/ Acetaminophen (Percocet 5-325 Mg) 1 tab Q6H PRN PO PAIN SCALE 3 TO 5 Last administered on 06/22/17 05:13; Start 06/19/17 at 14:45 Oxycodone/ Acetaminophen (Percocet 10-325 Mg) 1 tab Q6H PRN PO PAIN SCALE 6 TO 10; Start 06/19/17 at 14:45 Morphine Sulfate (Morphine Inj) 2 mg Q3H PRN IV PUSH Pain 3-5; if unable to take PO; Start 06/19/17 at 14:45 Morphine Sulfate (Morphine Inj) 4 mg Q3H PRN IV PUSH Pain 6-10;if unable to take PO Last administered on 06/20/17 05:16; Start 06/19/17 at 14:45 Naloxone HCl (Narcan Inj) 0.4 mg UNSCH PRN IV PUSH SEE LABEL COMMENTS; Start 06/19/17 at 14:45 Senna/Docusate Sodium (Antionette-Colace) 1 tab BID PO Last administered on 21:42; Start 06/19/17 at 21:00 Magnesium Hydroxide (Milk Of Magnesia Liq) 30 ml Q12H PRN PO MILD - MODERATE CONSTIPATION; Start 06/19/17 at 14:45 Sennosides (Senokot) 17.2 mg Q12H PRN PO MODERATE - SEVERE CONSTIPATION; Start 06/19/17 at 14:45 Bisacodyl (Dulcolax Supp) 10 mg DAILY PRN RECTAL SEVERE CONSITIPATION; Start 06/19/17 at 14:45 Lactulose (Lactulose Liq) 30 ml DAILY PRN PO SEVERE CONSITIPATION; Start at 14:45 Heparin Sodium/ Dextrose 250 ml @ 0 mls/hr TITRATE PRN IV Coagulation management; Start 06/19/17 at 14:45; Status UNV Amlodipine Besylate (Norvasc) 10 mg DAILY PO Last administered on 06/22/17 10 :52; Start 06/20/17 at 09:00 Aspirin (Aspirin Chew) 81 mg DAILY CHEW Last administered on 06/22/17 10:53; Start 06/20/17 at 09:00 Pantoprazole Sodium (Protonix) 40 mg DAILY@0600 PO Last administered on 05:12; Start 06/20/17 at 06:00 Levothyroxine Sodium (Synthroid) 150 mcg DAILY@0600 PO Last administered on 05:03; Start 06/20/17 at 06:00; Stop 06/20/17 at 12:10; Status DC Ramipril (Altace) 10 mg BID PO Last administered on 06/22/17 10:52; Start at 21:00 Clonidine (Catapres) 0.1 mg Q4H PRN PO SBP>160, DBP>90; Start 06/19/17 at 14:45 Levothyroxine Sodium (Synthroid) 25 mcg DAILY@0600 PO Last administered on 06/20 05:03; Start 06/20/17 at 06:00; Stop 06/20/17 at 12:10; Status DC Folic Acid (Folate) 1 mg DAILY PO Last administered on 06/22/17 10:52; Start 06/20/17 at 09:00; Stop 06/25/17 at 08:59 Thiamine HCl (Vitamin B1) 100 mg DAILY PO Last administered on 06/22/17 10:52 ; Start 06/20/17 at 09:00 Multivitamins/ Minerals Therapeutic (Theragran M Tab) 1 tab DAILY PO Last administered on 06/22/17 10:52; Start 06/20/17 at 09:00; Stop 06/25/17 at 08: 59 Lorazepam (Ativan) 1 mg Q4H PRN PO CIWA 8 - 10; Start 06/19/17 at 17:45 Lorazepam (Ativan) 2 mg Q2H PRN PO CIWA 11-14; Start 06/19/17 at 17:45 Heparin Sodium/ Dextrose 250 ml @ 17 mls/hr TITRATE IV Last administered on 10:58; Start 06/19/17 at 18:00; Stop 06/22/17 at 11:12; Status DC Benzonatate (Tessalon) 100 mg TID PRN PO cough interfering with rest Last administered on 06/22/17 00:48; Start 06/19/17 at 23:15 Levothyroxine Sodium (Synthroid) 200 mcg DAILY@0600 PO Last administered on 05:12; Start 06/21/17 at 06:00 Diphenhydramine HCl (Benadryl) 25 mg Q6H PRN PO SEE LABEL COMMENTS; Start 06/28 at 03:45; Status Cancel Diatrizoate Meglum/ Diatrizoate Sod ( Gastroview Liq) 18 ml ONCE ONCE PO Last administered on 06/21/17 16:23; Start 06/21/17 at 16:15; Stop 06/21/17 at 16:16; Status DC Iohexol (Omnipaque 350 Inj) 95 ml STK-MED ONCE IVCONTRAST Last administered on 06/21/17 20:27; Start 06/21/17 at 20:27; Stop 06/21/17 at 20:28; Status DC Apixaban (Eliquis) 10 mg BID PO Last administered on 06/22/17 12:16; Start 06/22/17 at 13:00 Urinary Catheter: No Vascular Central Line Catheter: No A/P Problem List: (1) Pulmonary embolism ICD Code: I26.99 - Other pulmonary embolism without acute cor pulmonale (2) Hypothyroid ICD Code: E03.9 - Hypothyroidism, unspecified (3) HTN (hypertension) ICD Code: I10 - Essential (primary) hypertension (4) Iron deficiency anemia ICD Code: D50.9 - Iron deficiency anemia, unspecified Assessment and Plan 51 y/o male with a history of HTN, Gerd and hypothyroid presented to the ED with complaints of sob and right calf pain. Pulmonary embolism CTA reviewed and showed positive PE -Bilateral Doppler ultrasound to rule out DVT -Hypercoag labs ordered, will consult hematology if needed -Heparin Drip ordered Ultrasound shows right lower extremity DVTs Consult hematology Hypertension, chronic -Resume home amlodipine and ramipril -Monitor Vitals -Clonidine PRN Hypothyroid, chronic -Resume home medication levothyroxine -TSH pending Increase Synthroid to 200 MCG's by mouth daily due to the elevated TSH Alcohol abuse, 6-8 beers a day -CIWA protocol ordered -Withdraw/seizure precautions -Encouraged to quit IRON DEFICIENCY ANEMIA- WILL CHECK CAT SCAN OF ABDOMEN/PELVIS STOOL FOR OCCULT BLOOD CONSULT GI- RULE ON MALIGNANCY DUE TO CLOTS AND IRON DEFICIENCY DW PATIENT AND RN AND HEMATOLOGY 1. VTE: unprovoked. Extensive discussion with patient and regarding risks vs benefits of each anticoagulant. He has elected to proceed with apixaban. He will need to take apixaban 10 mg PO BID x 7 days following by 5mg BID. He will need to be on anticoagulation for a minimum of three months and likely indefinitely. 2. NEAL: severe with ferritin of 7. CT abdomen/pelvis unremarkable. Patient with colonoscopy within the past 3-4 years with removal of benign polyps. Hemoccult positive. GI team will plan to for scope once he is further out from acute VTE and can safely stop anticoagulation. Will arrange for close follow up in hematology clinic for follow up of CBC and for IV iron therapy. He will be discharge on oral iron therapy. GI prophylaxis: Protonix CLEARED BY HEMATOLOGY FOR DC Discharge Planning CLEARED BY ALL FOR Wild Oquendo DO Jun 22, 2017 15:00
--- NOTE | 2017-06-22 15:04 | HHI.GIFU ---
Subjective Remarks Pt OOB, changing clothes. EAger to go home. NO obvious bleeding. Started on eliquis today. (Alexandria Thompson) Objective Vitals I&O Vital Signs Date Time Temp Pulse Resp B/P (MAP) Pulse Ox O2 Delivery O2 Flow Rate FiO2 06/22/17 12:12 97.4 71 17 126/73 (90) 97 06/22/17 08:32 98.4 67 16 114/70 (85) 96 06/22/17 05:15 98.0 70 18 119/76 (90) 97 06/21/17 22:00 70 06/21/17 20:00 99.0 85 18 133/72 (92) 98 06/21/17 18:00 67 06/21/17 15:52 98.4 82 18 113/62 (79) 100 I/O 06/21/17 06/21/17 06/21/17 06/22/17 06/22/17 06/22/17 07:00 15:00 23:00 07:00 15:00 23:00 Intake Total 360 ml 530 ml 180 ml Balance 360 ml 530 ml 180 ml Intake Oral 360 ml IV Total 530 ml 180 ml # Voids 1 3 2 # Bowel Movements 1 1 Laboratory Laboratory Tests Test 06/22/17 07:38 White Blood Count 5.9 Red Blood Count 4.16 Hemoglobin 7.6 Hematocrit 25.3 Mean Corpuscular Volume 60.9 Mean Corpuscular Hemoglobin 18.4 Mean Corpuscular Hemoglobin Concent 30.2 Red Cell Distribution Width 20.2 Platelet Count 197 Mean Platelet Volume 8.6 Neutrophils (%) (Auto) 61.5 Lymphocytes (%) (Auto) 20.2 Monocytes (%) (Auto) 12.2 Eosinophils (%) (Auto) 4.3 Basophils (%) (Auto) 1.8 Neutrophils # (Auto) 3.6 Lymphocytes # (Auto) 1.2 Monocytes # (Auto) 0.7 Eosinophils # (Auto) 0.3 Basophils # (Auto) 0.1 CBC Comment DIFF FINAL Differential Comment Prothrombin Time 10.9 Prothromb Time International Ratio 1.0 Activated Partial Thromboplast Time 53.2 Blood Urea Nitrogen 12 Creatinine 1.10 Random Glucose 95 Total Protein 6.9 Albumin 3.6 Calcium Level 8.9 Phosphorus Level 3.6 Magnesium Level 2.7 Alkaline Phosphatase 71 Aspartate Amino Transf (AST/SGOT) 25 Alanine Aminotransferase (ALT/SGPT) 29 Total Bilirubin 0.3 Sodium Level 138 Potassium Level 3.7 Chloride Level 106 Carbon Dioxide Level 22.8 Anion Gap 9 Estimat Glomerular Filtration Rate 70 Date/Time Source Procedure Growth Status 06/21/17 22:45 Stool Stool Stool Occult Blood (RACHEL) - Final HEMOCCULT POSITIVE Complete Physical Exam HEENT: PERRL; normocephalic; atraumatic; no jaundice. CHEST: CTA CARDIAC: RRR ABDOMEN: Soft, nondistended, nontender; no hepatosplenomegaly; bowel sounds are present in all four quadrants. EXTREMITIES: No clubbing, cyanosis, or edema. SKIN: Normal; no rash; no jaundice. MECHANICAL DESIGN DRAFTER: No focal deficits; alert and oriented times three. (Alexandria Thompson) Assessment and Plan Plan ASSESSMENT - anemia, questionable melena - hgb 9.1 on admission, hypochromic, microcytic, has dropped to 8.3. last colonoscopy 4y ago found polyps EGD and dilatation 7y ago. iron 15L, TIBC 440, sat 3.4%L ferritin 7L. hemoccult pos. started on eliquis today. no visible bleeding. CT showed enlarged prostate, compensated cardiomegaly. - bilat PE, DVT RLE per primary, on heparin PLAN - ARTIE - consider EGD colonoscopy in few months when anticoag can be stopped - monitor HH - transfuse as necessary - supportive care - if d/c f/u with GI as outpatient This pt seen by myself and Dr Virgen and this note is written on his behalf (Alexandria Thompson) Physician Comments Seen and examined with COMMUTATOR TESTER< no obvious bleeding. Needs egd/colonoscopy as out patient in a few weeks once anticoagulation can be stopped. GI fu in 02 weeks upon dc. Thank you (Temi Virgen MD) Alexandria Thompson Jun 22, 2017 15:04 Temi Virgen MD Jun 22, 2017 16:31
[2017-06-22] MEDS ORDERED: GNP100TA3 PO (15:09)
[2017-06-22] MEDS ORDERED: FOLI1TAB6 PO (15:09)
[2017-06-22] MEDS ORDERED: THERM PO (15:09)
[2017-06-22] MEDS ORDERED: FERR325C PO (15:09)
[2017-06-22] MEDS ORDERED: APIX5TAB PO (15:09)
[2017-06-22] MEDS ORDERED: COLA100C PO (15:09)
[2017-06-22] MEDS ORDERED: OXYC1TAB36 PO (15:09)
[2017-06-22] MEDS ORDERED: PROT40TA PO (15:09)
[2017-06-22] MEDS ORDERED: LEVO.2 PO (15:09)
--- NOTE | 2017-06-22 15:10 | HHI.DS ---
Discharge Summary Admission Date Jun 19, 2017 at 16:25 Discharge Date: Jun 22, 2017 Admitting Diagnosis (1) Pulmonary embolism ICD Code: I26.99 - Other pulmonary embolism without acute cor pulmonale Diagnosis: Principal (2) Hypothyroid ICD Code: E03.9 - Hypothyroidism, unspecified Diagnosis: Secondary (3) HTN (hypertension) ICD Code: I10 - Essential (primary) hypertension Diagnosis: Secondary (4) Iron deficiency anemia ICD Code: D50.9 - Iron deficiency anemia, unspecified Diagnosis: Principal (5) Deep vein thrombosis (DVT) of right lower extremity ICD Code: I82.401 - Acute embolism and thrombosis of unspecified deep veins of right lower extremity Diagnosis: Principal Procedures NONE Brief History - From Admission 51 y/o male with a history of HTN, Gerd and hypothyroid presented to the ED with complaints of sob and right calf pain. Patient states 2 weeks ago developed dyspnea and right calf pain. 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 He was seen by his PCP and diagnosed with bronchitis and given Ciprofloxacin without any relief. No chest x ray or US was completed outpatient. He denies any chest pain, fever or chills. He does have a cough which is followed by the shortness of breath, and worse with exertion. No sputum production. FOUND TO HAVE BILATERAL PULMONARY EMBOLI CBC/BMP: 06/22/17 0738 06/22/17 0738 Significant Findings Laboratory Tests Test 06/19/17 21:18 06/20/17 04:04 06/20/17 08:46 06/20/17 12:34 Hemoglobin 9.1 GM/DL (13.0-17.0) 8.3 GM/DL (13.0-17.0) Hematocrit 30.2 % (39.0-51.0) 28.1 % (39.0-51.0) Mean Corpuscular Volume 60.2 FL (80.0-100.0) 60.6 FL (80.0-100.0) Mean Corpuscular Hemoglobin 18.1 PG (27.0-34.0) 18.0 PG (27.0-34.0) Mean Corpuscular Hemoglobin Concent 30.1 % (32.0-36.0) 29.6 % (32.0-36.0) Red Cell Distribution Width 20.1 % (11.6-17.2) 20.5 % (11.6-17.2) Activated Partial Thromboplast Time 81.4 SEC (24.3-30.1) 64.5 SEC (24.3-30.1) 53.9 SEC (24.3-30.1) 59.9 SEC (24.3-30.1) Troponin I LESS THAN 0.02 NG/ML LESS THAN 0.02 NG/ML Monocytes (%) (Auto) 11.7 % (0.0-8.0) Eosinophils (%) (Auto) 4.1 % (0.0-4.0) Calcium Level 8.4 MG/DL (8.5-10.1) Magnesium Level 2.8 MG/DL (1.5-2.5) Estimat Glomerular Filtration Rate 69 ML/MIN (>89) Hemoglobin A1c 6.1 % (4.3-6.0) Iron Level 15 MCG/DL (65-175) Percent Iron Saturation 3.4 % (20-50) Ferritin 7 NG/ML (26-388) Folate GREATER THAN 20.0 NG/ML Thyroid Stimulating Hormone 3rd Gen 12.200 uIU/ML (0.358-3.740) Test 06/20/17 20:05 06/21/17 11:05 06/22/17 07:38 Activated Partial Thromboplast Time 48.2 SEC (24.3-30.1) 58.8 SEC (24.3-30.1) 53.2 SEC (24.3-30.1) Red Blood Count 4.16 MIL/MM3 (4.50-5.90) Hemoglobin 7.6 GM/DL (13.0-17.0) Hematocrit 25.3 % (39.0-51.0) Mean Corpuscular Volume 60.9 FL (80.0-100.0) Mean Corpuscular Hemoglobin 18.4 PG (27.0-34.0) Mean Corpuscular Hemoglobin Concent 30.2 % (32.0-36.0) Red Cell Distribution Width 20.2 % (11.6-17.2) Monocytes (%) (Auto) 12.2 % (0.0-8.0) Eosinophils (%) (Auto) 4.3 % (0.0-4.0) Magnesium Level 2.7 MG/DL (1.5-2.5) Estimat Glomerular Filtration Rate 70 ML/MIN (>89) Imaging Last Impressions Abdomen/Pelvis CT 06/21/17 1851 Signed Impressions: Service Date/Time: Wednesday, June 21, 2017 20:23 - CONCLUSION: 1. Diffuse enlargement of the prostate at 6.1 cm. 2. Otherwise, unremarkable CT abdomen and pelvis. 3. Compensated cardiomegaly. Bola Coe MD Lower Extremity Ultrasound 06/19/17 0000 Signed Impressions: Service Date/Time: Monday, June 19, 2017 17:34 - CONCLUSION: 1. Occlusive thrombus in the right peroneal and posterior tibial vein. 2. No evidence for DVT on the left. Hernesto Starr MD PE at Discharge GENERAL: This is a well-nourished, well-developed patient, in no apparent distress. SKIN: No rashes, ecchymoses or lesions. Cool and dry. HEAD: Atraumatic. Normocephalic. No temporal or scalp tenderness. EYES: Pupils equal round and reactive. Extraocular motions intact. No scleral icterus. No injection or drainage. ENT: Nose without bleeding, purulent drainage or septal hematoma. Throat without erythema, tonsillar hypertrophy or exudate. Uvula midline. Airway patent. Tongue is midline NECK: Trachea midline. No JVD. Supple CARDIOVASCULAR: Regular rate and rhythm without murmurs, gallops, or rubs. RESPIRATORY: Diminished bilateral upper lobes. No wheezes, rales, or rhonchi. GASTROINTESTINAL: Abdomen soft, non-tender, nondistended. BS x 4 MUSCULOSKELETAL: Extremities without clubbing, cyanosis, or edema. Right calf tenderness. NEUROLOGICAL: Awake and alert. Motor and sensory grossly within normal limits. Normal speech. Insight and judgment is good; mood and behaviors are appropriate Hospital Course 51 y/o male with a history of HTN, Gerd and hypothyroid presented to the ED with complaints of sob and right calf pain. Patient states 2 weeks ago developed dyspnea and right calf pain. 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 He was seen by his PCP and diagnosed with bronchitis and given Ciprofloxacin without any relief. No chest x ray or US was completed outpatient. He denies any chest pain, fever or chills. He does have a cough which is followed by the shortness of breath, and worse with exertion. No sputum production. FOUND TO HAVE BILATERAL PULMONARY EMBOLI 10-9 patient found to have DVTs in the right lower extremity Has pulmonary embolism bilaterally Consult hematology Hopefully can be placed on a novel anticoagulant Have discussed with the patient and RN Has some pain in the right lower extremity and some back pain Continue heparin drip at this time His TSH was elevated will increase his Synthroid to 200 MCG's daily 10-10 NOTED TO HAVE SEVERE IRON DEFICIENCY ANEMIA DW HEMATOLOGY WANTS CAT SCAN OF ABDOMEN AND PELVIS AND CONSULT GI WELL STOOL FOR OCCULT BLOOD CONTINUE HEPARIN DRIP AT THIS TIME ECHO TO RULE OUT HEART STRAIN STILL HAVING SOB AND PAIN IN RIGHT LE PATIENT WANTS TO SHOWER- WILL HOLD OFF ON THAT UNTIL AFTER ECHO IS BACK 10-11 HAS BEEN CLEARED BY GI AND HEMATOLOGY TO CONTINUE ON XARELTO 10MG BID FOR 7 DAYS THEN 5MG PO BID FROM THERE ON DC TO HOME TODAY ECHO STABLE CT ABD/PELVIS STABLE FOLLOW UP PCP FOLLOW UP DR COLE FOLLOW UP GI DR VIRGEN Pt Condition on Discharge: Good Discharge Disposition: Discharge Home Discharge Time: > 30 minutes Discharge Instructions DIET: Follow Instructions for: Heart Healthy Diet Speech Therapy-Diet Recommends: Regular Activities you can perform: Regular-No Restrictions Follow up Referrals: Gastroenterology - 2 Weeks with Temi Virgen MD Oncology/Hematology - 1 Week with Chuyita Cole MD PCP Follow-up - 1 Week New Medications: Docusate Sodium (Colace) 100 Mg Capsule 1 CAP PO TID for Constipation, #90 CAP Ferrous Sulfate (Iron) 325 Mg Cap 325 MG PO TIDPC for Nutritional Supplement, #90 TAB 0 Refills Apixaban (Eliquis) 5 Mg Tab 10 MG PO BID for Blood Clot Prevention, #100 TAB 5MG TABLETS- 2 TABLETS PO BID FOR 7 DAYS THEN 1 TABLET PO BID FROM THERE ON Folic Acid (Folic Acid) 1 Mg Tablet 1 MG PO DAILY for Nutritional Supplement, #90 TAB Levothyroxine (Synthroid) 200 Mcg Tab 200 MCG PO DAILY@0600 for Thyroid, #30 TAB Multiple Vitamins W/ Minerals (Thera M Plus) 1 Tab 1 TAB PO DAILY for Nutritional Supplement, #90 TAB Oxycodone-Acetaminophen (Oxycodone-Acetaminophen) 10-325 mg Tab 1 TAB PO Q6H PRN for PAIN SCALE 6 TO 10, #60 TAB Thiamine HCl (Gnp Vitamin B-1) 100 Mg Tab 100 MG PO DAILY for Nutritional Supplement, #90 TAB Changed Medications: Pantoprazole (Protonix) 40 Mg Tab 40 MG PO BID for Reflux, #60 TAB 0 Refills (Changed from: DAILY; 30) Continued Medications: Amlodipine (Amlodipine) 10 Mg Tab 10 MG PO DAILY for Blood Pressure Management, #30 TAB 0 Refills Fexofenadine-Pseudoephedrine ER 12 HR (Corazon-D 12 Hour Allergy) 60-120 Mg Sierra 1 TAB PO BID for Allergy Management, #60 TAB 0 Refills Ramipril (Ramipril) 10 Mg Cap 10 MG PO BID, #60 CAP 0 Refills Discontinued Medications: Aspirin (Aspirin) 81 Mg Chew 81 MG CHEW DAILY, TAB 0 Refills Ciprofloxacin (Cipro) 500 Mg Tab 500 MG PO BID for Infection, TAB 0 Refills Levothyroxine (Levothyroxine) 175 Mcg Tab 175 MCG PO DAILY for Thyroid, #30 TAB 0 Refills Wild Ibanez DO Jun 22, 2017 15:10
== END 2017-06-22 17:48 | disposition home or self-care (01) | DRG 299 ==
LOC: NEDDLT 14:13 → HIMW 16:25 → N05A 18:38
PROVIDERS: ADMIT Hospitalist; ATTEND Hospitalist
DX: I82.441 Acute embolism and thrombosis of right tibial vein (principal); I26.99 Other pulmonary embolism without acute cor pulmonale; I82.491 Acute embolism and thrombosis of other specified deep vein of right lower extremity; I10 Essential (primary) hypertension; F10.10 Alcohol abuse, uncomplicated; D50.9 Iron deficiency anemia, unspecified; K21.9 Gastro-esophageal reflux disease without esophagitis; E03.9 Hypothyroidism, unspecified; Z79.82 Long term (current) use of aspirin
CPT/HCPCS: 36600; 71020; 71275; 74177; 80048; 80053; 81240; 81241; 81291; 82272; 82550; 82552; 82607; 82728; 82746; 82805; 83010; 83036; 83090; 83540; 83550; 83615; 83735; 84100; 84153; 84154; 84439; 84443; 84484; 85025; 85027; 85060; 85240; 85245; 85246; 85247; 85250; 85300; 85303; 85306; 85307; 85379; 85384; 85597; 85598; 85610; 85613; 85670; 85730; 86146; 86147; 86148; 93005; 93306; 93970; 96374; 96375; J1644; J2270; J7030; Q9963; Q9967

== ENCOUNTER → 2017-08-24 | Day surgery (SDC) | payer OTHER ==
[~2017-08-24] MED LIST changes: +APIX5TAB PO; -ASPI81CH CHEW; -CIPR-9 PO; +COLA100C5 PO; +FERR325C PO; +FOLI1TAB6 PO; +LEVO.2 PO; -LEVO175T2 PO; +OXYC1TAB36 PO; +PROPOFOL 500 MG/50 ML BTL IV ONE; +THERM PO; +THIA100 PO
--- NOTE | 2017-08-24 11:17 | GIPROC ---
[facility] [address] [facility], [address] EGD PROCEDURE REPORT EXAM DATE: 08/24/2017 PATIENT NAME: Jose Maher MR #: [id number] BIRTHDATE: 1965 ATTENDING: Temi Virgen MD ORDER #: [id number] SCIENTIFIC EDITOR: Gunner Chung RN STATUS: outpatient INDICATIONS: The patient is a 52 yr old male here for an EGD due to acute post hemorrhagic anemia PROCEDURE PERFORMED: EGD w/ biopsy MEDICATIONS: None and Per Anesthesia. TOPICAL ANESTHETIC: CONSENT: The patient understands the risks and benefits of the procedure and understands that these risks include, but are not limited to: sedation, allergic reaction, infection, perforation and/or bleeding. Alternative means of evaluation and treatment include, among others: physical exam, x-rays, and/or surgical intervention. The patient elects to proceed with this endoscopic procedure. medical equipment was checked for proper function. Hand hygiene and appropriate measures for infection prevention was taken. After the risks, benefits and alternatives of the procedure were thoroughly explained, Informed consent was verified, confirmed and timeout was successfully executed by the treatment team. The patient was anesthetized with topical anesthesia and the EC-[id number] ([id number]) endoscope was introduced through the mouth and advanced to the second portion of the duodenum. Retroflexed views revealed no abnormalities The gastroscope was then slowly withdrawn and removed. ESOPHAGUS: There was LA Class A esophagitis noted. A biopsy was performed using cold forceps. Sample sent for histology. STOMACH: There was erythematous moderate gastritis in the gastric antrum. A biopsy was performed using cold forceps. Sample sent for histology. DUODENUM: The duodenal mucosa appeared normal in the bulb and second portion of the duodenum. ADVERSE EVENTS: There were no complications. IMPRESSIONS: 1. There was LA Class A esophagitis noted; biopsy was performed 2. There was erythematous gastritis in the gastric antrum; biopsy was performed 3. Normal duodenal mucosa in the bulb and second portion of the duodenum 4. Retroflexed views revealed no abnormalities RECOMMENDATIONS: 1. Await biopsy results. Biopsy results will not be ready for 7-10 days. If you don't hear from us in two weeks, call our office for biopsy results. 2. Anti-reflux regimen 3. Continue PPI PATIENT CONDITION: stable DISPOSITION: Home REPEAT EXAM: Return 1 year EGD pending biopsy results Temi Virgen MD eSigned: Temi Virgen MD 08/24/2017 11:17 AM cc: Rudy Farias PATIENT NAME: Jose Maher MR#: [id number]
--- NOTE | 2017-08-24 11:35 | GIPROC ---
[facility] [address] [facility], [address] COLONOSCOPY PROCEDURE REPORT EXAM DATE: 08/24/2017 PATIENT NAME: Jose Maher MR #: [id number] BIRTHDATE: 1965 ENDOSCOPIST: Temi Virgen MD ORDER #: [id number] COMMUNITY SERVICE COORDINATOR: Gunner Chung RN STATUS: outpatient INDICATIONS: The patient is a 52 yr old male here for a colonoscopy due to iron deficiency anemia PROCEDURE PERFORMED: Colonoscopy with biopsy MEDICATIONS: None and Per Anesthesia. PREP QUALITY: The [place] Bowel Prep Score was Right colon 2, Mid colon 2, and Left colon 2. Total = 6. ESTIMATED BLOOD LOSS: None CONSENT: The patient understands the risks and benefits of the procedure and understands that these risks include, but are not limited to: sedation, allergic reaction, infection, perforation and/or bleeding. Alternative means of evaluation and treatment include, among others: physical exam, x-rays, and/or surgical intervention. The patient elects to proceed with this endoscopic procedure. medical equipment was checked for proper function. Hand hygiene and appropriate measures for infection prevention was taken. After the risks, benefits and alternatives of the procedure were thoroughly explained, Informed consent was verified, confirmed and timeout was successfully executed by the treatment team. A digital exam revealed external hemorrhoids The EC-[id number] ([id number]) endoscope was introduced through the anus and advanced to the cecum, which was identified by both the appendix and ileocecal valve. The instrument was then slowly withdrawn as the colon was fully examined. COLON FINDINGS: A polypoid shaped flat polyp ranging between 3-7mm in size was found in the descending colon. Multiple biopsies were performed using cold forceps. Moderate diverticulosis was noted in the sigmoid colon. No bleeding was noted from the diverticulosis. Retroflexed views revealed internal hemorrhoids and Retroflexed views revealed small internal hemorrhoids The scope was then completely withdrawn from the patient and the procedure terminated. PROCEDURE WITHDRAWAL TIME:6minutes ADVERSE EVENTS: There were no complications. IMPRESSIONS: 1. A flat polyp ranging between 3-7mm in size was found in the descending colon; multiple biopsies were performed using cold forceps 2. Moderate diverticulosis was noted in the sigmoid colon 3. Retroflexed views revealed internal hemorrhoids 4. Retroflexed views revealed small internal hemorrhoids 5. Revealed external hemorrhoids RECOMMENDATIONS: 1. Await biopsy results. Biopsy results will not be ready for 7-10 days. If you don't hear from us in two weeks, call our office for results. 2. Continue surveillance 3. Yearly hemoccult 4. High fiber diet RECALL: Return 1 year Colonoscopy, pending biopsy results Temi Virgen MD eSigned: Temi Virgen MD 08/24/2017 11:34 AM cc: [facility] Hernandez [facility] PATIENT NAME: Jose Maher MR#: [id number]
== END | disposition home or self-care (01) ==
LOC: ESDC 10:16
PROVIDERS: ATTEND Internal Medicine Gastroenterology
DX: D50.9 Iron deficiency anemia, unspecified (principal); K64.4 Residual hemorrhoidal skin tags; K63.5 Polyp of colon; K57.90 Diverticulosis of intestine, part unspecified, without perforation or abscess without bleeding; K64.8 Other hemorrhoids; K20.9 Esophagitis, unspecified; K29.70 Gastritis, unspecified, without bleeding
CPT/HCPCS: 00740; 00810; 43239; 45380; 88305; 88312; J3010